=== PATIENT | female | born 1975 | race Caucasian/White ===

== ENCOUNTER 2017-12-28 05:21 | Day surgery (SDC) | payer MEDICARE, MEDICAID, SELFPAY ==
[2017-12-28] VITALS (13 sets, daily range): BP systolic 92–131; BP diastolic 44–81; PULSE 76–115; RESP 14–18; TEMP 36.3–37.5; O2SAT 93–99; BMI 27.5
--- NOTE | 2017-12-28 05:29 | EKG12_ITS ---
Test Reason : PRE-OP Blood Pressure : / mmHG Vent. Rate : 107 BPM Atrial Rate : 107 BPM P-R Int : 174 ms QRS Dur : 082 ms QT Int : 344 ms P-R-T Axes : 076 065 069 degrees QTc Int : 459 ms Sinus tachycardia Otherwise normal ECG Confirmed by NEFTALY BLUNT, ALEKSANDER ([id number]), editor school photograph CLINT ROSA ([id number]) on 01/02/2018 8:51:45 AM Referred By: Valarie Wiley Confirmed By:ALEKSANDER HIGGINBOTHAM MD
[2017-12-28 05:46] LABS: Internal QC Validated? YES +Cl - CLEAR BKGD; Pregnancy, Urine Negative Negative
[2017-12-28] MEDS: Phenazopyridine 95 MG Tablet 190 MG PO (05:52)
[2017-12-28 06:12] LABS: Hematocrit 45.7 % (37-47); Hemoglobin 15.6 g/dl (12.0-15.0); Mean Corp Hgb Conc 34.1 g/gl (32-36); Mean Corpuscular Hgb 31.4 pg (27.0-32.0); Mean Platelet Vol. 9.2 fl (6.2-12.0); Platelet Count 269 K/mm3 (150-450); RBC Distribution Width CV 12.7 % (11.6-14.6); RBC Distribution Width SD 41.7 fl (35.1-43.9); Red Blood Count 4.97 M/mm3 (4.2-5.4); White Blood Count 6.8 K/mm3 (4.4-11.0)
[2017-12-28 06:17] LABS: Scan Indicated on CBC? Y/N NO
[2017-12-28 06:18] LABS: International Normalized Ratio 1.1; Prothrombin Time (Protime)PT. 13.8 SECONDS (11.7-14.9)
[2017-12-28 06:24] LABS: Partial Thromboplast Time 28.1 Seconds (24.1-36.2)
[2017-12-28 06:30] LABS: AST(SGOT) 26 U/L (15-37); Alanine Aminotransfer ALT/SGPT 50 U/L (13-56); Albumin, Serum 3.9 g/dL (3.2-5.0); Alkaline Phosphatase 79 U/L (45-117); Anion Gap 7 (5-15); BUN 13 mg/dL (7-18); Bilirubin, Direct 0.11 mg/dL (0.00-0.30); Calcium,Total 8.9 mg/dL (8.5-10.1); Chloride 109 mmol/L (98-107); Creatinine, Serum 0.76 mg/dL (0.55-1.02); EST Glomerular Filtration Rate 87 mL/min (>60); Est Glom Filt Rate - Afr Amer 105 mL/min (>60); Estimated Creatinine Clearance 81.57 ml/min; Globulin 3.6 g/dL (2.2-4.2); Glucose 106 mg/dL (70-110); Potassium 4.3 mmol/L (3.5-5.1); Protein, Total 7.5 g/dL (6.4-8.2); Sodium Level 143 mmol/L (136-145)
[2017-12-28] MEDS: Vasopressin 20 UNITS/ML Vial (07:02)
--- NOTE | 2017-12-28 07:15 | HYST_PTH ---
PATIENT: SAMRA PELAEZ LOC: [facility] [place] U#:[id number] AGE/SX: 42/F ROOM: RE12/28/[address]: Dr. Valarie Wiley, MDDOB: 1975 BED: DIS: 12/29/2017 SPEC #: [id number] RECD: 12/28/17 08:52 STATUS: JANET MAHONEYFlorencio #: [id number] [place]: 12/28/17 07:[address]: Valarie Wiley DEPT: SURGICAL PATHOLOGY RECD BY: Nino Fierro ENTERED: 12/28/17 09:30 SP TYPE: HYSTERECT OTHR DR: Dr. Nestor Toscano MD Tissues: Uterus, NOS Procedures: Surgery Specimen Level V HEADER OPERATION: Laparoscopic assisted vaginal hysterectomy, bilateral salpingectomy PRE-OP DIAGNOSIS: Postmenopausal bleeding TISSUE SUBMITTED: Uterus, cervix, bilateral fallopian tubes MICROSCOPIC DIAGNOSIS Uterus, hysterectomy: Cervix ? mild chronic inflammation. Endometrium ? proliferative endometrium. Myometrium ? focal superficial adenomyosis. Right and left fallopian tubes ? no pathologic change. AM:cayden 12/29/17 MICROSCOPIC DESCRIPTION Slides are reviewed. GROSS DESCRIPTION Received in fixative is one container labeled with the patient's name and designated uterus, cervix and bilateral fallopian tubes. The specimen consists of a hysterectomy specimen consisting of uterus with cervix and attached bilateral fallopian tubes. The uterus with cervix weighs 61 gm and measures 8 x 5 x 3.5 cm. The serosal surface is davila, glistening. The ectocervical mucosa is unremarkable. The ectocervix is oval in contour. The endocervical canal measures 2.5 cm in length and the endocervical mucosa is unremarkable. The triangular endometrial cavity measures 3.5 cm in length and 2.5 cm in width. The endometrium is davila, congested and measures <0.1 cm in thickness. The cornu on the left side, a portion of metallic coiled wire device is also noted. Sections of the uterine wall do not reveal any mass lesion and it measures 2 cm in thickness. The right fallopian tube measures 6 cm in length and 0.5 cm in diameter. The fimbrial end is identified. A Filshie clip is noted in the middle which appears intact. The left fallopian tube measures 5 cm in length and 0.5 cm in diameter. A Filshie clip is also noted in the middle which appears intact. A metallic coiled device is also noted in the portion of the fallopian tube. No metallic coiled device is noted in the right side. Also present in the container is a detached piece of soft tissue measuring 1.5 x 1 x 0.5 cm. Orange Picker sections are submitted in nine cassettes as follows: 1 - anterior cervix, 2 - posterior cervix, 3 & 4 - anterior uterine wall, 5 & 6 - posterior uterine wall, 7 ? right fallopian tube, 8 ? left fallopian tube, 9 ? detached piece of tissue. / BENITA:cayden 12/28/17 TC:5 CPT: 37576
[2017-12-28] MEDS: Bupivacaine Mpf 0.5% 30 ML VIAL (07:45)
--- NOTE | 2017-12-28 08:30 | PCM.OP.BLANK ---
Operative Report Date of Procedure: 12/28/17 Date of Procedure: 12/28/17 Pre-Operative Diagnosis: AUB, pelvic pain Post-Operative Diagnosis: same Surgery/Procedure Performed:: LAVH, bilateral salpingectomy, cysto Description of Surgical Findings:: No evidence of endometriosis. Normal ovaries, normal uterus. bilateral filshie clips present Surgeon: Dr. Valarie Barger nutritionist: Dr. Deanna Mcdonough nutritionist: Jose Manuel Aguilera - MS3 Type of Anesthesia:: General Anesthesiologist: Micheal Villar Special Medications: dilute vasopressin for vaginal aspect 20 in 200cc. 0.5 % marcaine for abd. incisions Specimen's removed: uterus, cervix, bilateral tubes Drains: limon Estimated Blood Loss (mL): 30 Fluids Replaced: 1600cc Description of Procedure: Patient take to OR and prepped and draped in usual sterile fashion in dorsal lithotomy position with her arms tucked in a neurologically safe and neutral position. The uterus sounded to 6 cm. The [employer] uterine manipulator and limon were placed. Attention was turned to the abdomen. All port sites were infiltrated with 0.5% Marcaine before the incisions were made. The anterior abdominal wall was tented up with towel clamps and using a direct entry approach a 5 mm intraumbilical port was placed with direct visualization. Intraperitoneal placement was confirmed with the laparoscope and the pneumoperitoneum was created. The patient was placed in Trendelenburg and 5 mm right and left lower quadrant ports were placed under direct visualization. The bowel was swept away. Ovaries appeared normal. The tubes were grasped, clamped, sealed and transected along the antimesenteric portions with the LigaSure. The round ligaments were divided. The anterior peritoneum was dissected down to create the bladder flap with blunt dissection and the ligasure. The uterine arteries were isolated, clamped, sealed and cut. There was minimal back bleeding from the uterus. Attention was turned to the vaginal portion of the case. The anterior vagina was infiltrated w/ dilute vasopressin An incision was made over the anterior vagina and the anterior colpotomy incision was made with blunt and sharp dissection. The lower vagina was clamped, transected and suture ligated. A second pedicle containing the peritoneum was secured with Sanjay clamps, cut and suture ligated. The uterus was brought through the anterior colpotomy incision and the uterosacral ligaments were clamped, cut and suture ligated. The pedicles were examined and were suture ligated. The specimen was handed off. the uterosacral ligaments were tied in the midline The cuff was closed with interrupted 0-vicryl figure of 8 sutures. Cystoscopy was performed, both ureters noted to be peristalsing. Bladder mucosa intact. The pneumoperitoneum was recreated and the cuff and pedicles were hemostatic. The ureters were both seen and peristalsing. The skin incisions were closed with skin glue and 3-0 monocryl. The vaginal sweep was completed by me. I performed the remainder of the procedure w/ assistance. Grafts/Implants Used: none - Complications none
--- NOTE | 2017-12-28 08:37 | OP.PCM_ITS ---
Operative Report Date of Procedure: 12/28/17 Date of Procedure: 12/28/17 Pre-Operative Diagnosis: AUB, pelvic pain Post-Operative Diagnosis: same Surgery/Procedure Performed:: LAVH, bilateral salpingectomy, cysto Description of Surgical Findings:: No evidence of endometriosis. Normal ovaries, normal uterus. bilateral filshie clips present Surgeon: Dr. Valarie Barger safety and health manager: Dr. Deanna Mcdonough safety and health manager: Jose Manuel Aguilera - MS3 Type of Anesthesia:: General Anesthesiologist: Micheal Villar Special Medications: dilute vasopressin for vaginal aspect 20 in 200cc. 0.5 % marcaine for abd. incisions Specimen's removed: uterus, cervix, bilateral tubes Drains: limon Estimated Blood Loss (mL): 30 Fluids Replaced: 1600cc Description of Procedure: Patient take to OR and prepped and draped in usual sterile fashion in dorsal lithotomy position with her arms tucked in a neurologically safe and neutral position. The uterus sounded to 6 cm. The [employer] uterine manipulator and limon were placed. Attention was turned to the abdomen. All port sites were infiltrated with 0.5% Marcaine before the incisions were made. The anterior abdominal wall was tented up with towel clamps and using a direct entry approach a 5 mm intraumbilical port was placed with direct visualization. Intraperitoneal placement was confirmed with the laparoscope and the pneumoperitoneum was created. The patient was placed in Trendelenburg and 5 mm right and left lower quadrant ports were placed under direct visualization. The bowel was swept away. Ovaries appeared normal. The tubes were grasped, clamped, sealed and transected along the antimesenteric portions with the LigaSure. The round ligaments were divided. The anterior peritoneum was dissected down to create the bladder flap with blunt dissection and the ligasure. The uterine arteries were isolated, clamped, sealed and cut. There was minimal back bleeding from the uterus. Attention was turned to the vaginal portion of the case. The anterior vagina was infiltrated w/ dilute vasopressin An incision was made over the anterior vagina and the anterior colpotomy incision was made with blunt and sharp dissection. The lower vagina was clamped, transected and suture ligated. A second pedicle containing the peritoneum was secured with Sanjay clamps, cut and suture ligated. The uterus was brought through the anterior colpotomy incision and the uterosacral ligaments were clamped, cut and suture ligated. The pedicles were examined and were suture ligated. The specimen was handed off. the uterosacral ligaments were tied in the midline The cuff was closed with interrupted 0-vicryl figure of 8 sutures. Cystoscopy was performed, both ureters noted to be peristalsing. Bladder mucosa intact. The pneumoperitoneum was recreated and the cuff and pedicles were hemostatic. The ureters were both seen and peristalsing. The skin incisions were closed with skin glue and 3-0 monocryl. The vaginal sweep was completed by me. I performed the remainder of the procedure w/ assistance. Grafts/Implants Used: none - Complications none
--- NOTE | 2017-12-28 10:39 | PCM.DC.AHY ---
Discharge Diet: No Restrictions Discharge Activity: Return to Normal Activity, May Not Drive - while taking narcotic pain medications., May Shower Return to work on:: 02/08/18 May shower in (days): 1 May resume sexual activity in: 6-8 weeks Lifting Restrictions: 20 Call your doctor if your incision/area has: Continuous Slow Oozing, Sudden Increased Bleeding, Increased Pain/ Swelling, Increased Redness, Foul Smelling Discharge Call your doctor if you observe: Fever of 101 or Higher, Inability to urinate, Inability to have a bowel movement, Using more than one pad per hour Cleanse incision/area with: Soap & Water - you have skin glue over incision sites. do not pick it off. You may let soap and water run over incision sites. Allergies/Adverse Reactions: Allergies egg Allergy (Verified 12/21/17 13:15) Anaphylaxis shellfish derived Allergy (Verified 12/21/17 13:15) Unknown, FROM TESTING ONLY Sulfa (Sulfonamide Antibiotics) Allergy (Verified 12/21/17 13:15) Hives codeine Adverse Reaction (Verified 12/21/17 13:15) Nausea Medications to take at Discharge Montelukast [Singulair] 10 mg PO QHS 06/08/16 Omeprazole [Prilosec] 20 mg PO BID 06/08/16 Ondansetron [Zofran Odt] 4 mg PO Q8H PRN PRN #10 tablet 06/08/16 Pramipexole Di-HCl [Mirapex] 0.5 mg PO DAILY 06/08/16 Albuterol Inhaler [Ventolin Hfa (SP)] 2 puff INHALATION Q6H PRN PRN 06/08/17 Ipratropium/Albuterol Sulfate [Duoneb] 3 ml INHALATION Q4H PRN PRN 06/08/17 Venlafaxine HCl [Effexor] 75 mg PO DAILY 06/08/17 Ergocalciferol [Vitamin D] 50,000 unit PO MOFR 12/21/17 Fluticasone 110 Mcg [Flovent 110 Mcg] 2 puff INHALATION BID 12/21/17 Lamotrigine 100 mg PO DAILY 12/21/17 Albuterol Aerosols [Ventolin Aerosols] 2.5 mg INHALATION Q4H PRN vial.neb. 12/28/17 Buspirone HCl 15 mg PO TID tablet 12/28/17 Ibuprofen [Motrin] 800 mg PO Q8H PRN PRN #30 tab 12/28/17 Ipratropium/Albuterol Sulfate [Duoneb] 3 ml INHALATION Q4H PRN PRN ampul.neb 12/28/17 Oxycodone HCl/Acetaminophen [Percocet 5/325] 1 tablet PO Q6H PRN PRN 7 Days #28 tablet 12/28/17 SimETHICONE [Mylicon] 80 mg PO PCHS #30 tab 12/28/17 The following prescriptions were given: Oxycodone HCl/Acetaminophen [Percocet 5/325] 1 tablet PO Q6H PRN PRN 7 Days #28 tablet PRN Reason: Pain Ibuprofen [Motrin] 800 mg PO Q8H PRN PRN #30 tab PRN Reason: Pain SimETHICONE [Mylicon] 80 mg PO PCHS #30 tab Primary Care Physician: Nestor Toscano MD [Primary Care Provider] - Please Follow Up With: Valarie Wiley MD When: as scheduled for 2 week post op visit
[2017-12-28] MEDS: Ipratropium/Albuterol Sulfate 3 ML AMPUL.NEB INHALATION (11:17)
[2017-12-28] MEDS: 0.9% NaCl Peripheral Flush Adult/Peds IV ×2 (12:49→17:47)
[2017-12-28] MEDS: Ketorolac 30 MG/ML Syringe IV ×3 (12:49→21:21)
[2017-12-28] MEDS: Acetaminophen 500 MG Tablet 1000 MG PO ×2 (12:53→21:20)
[2017-12-28] MEDS: oxyCODONE 5 MG Tablet PO ×2 (15:31→21:27)
[2017-12-28] MEDS: Lactated Ringers 1,000 ML 125 ML IV (17:49)
[2017-12-28] MEDS: Montelukast 10 MG Tablet PO (21:20)
[2017-12-29 02:45] VITALS: BP 92/48; PULSE 73; RESP 18; TEMP 36.9; O2SAT 97
[2017-12-29] MEDS: 0.9% NaCl Peripheral Flush Adult/Peds IV ×2 (04:19→09:16)
[2017-12-29] MEDS: Ketorolac 30 MG/ML Syringe IV ×2 (04:19→09:16)
[2017-12-29] MEDS: oxyCODONE 5 MG Tablet PO ×2 (04:38→09:16)
[2017-12-29] MEDS: Enoxaparin 40 MG/0.4 ML Syringe SC (05:07)
[2017-12-29] MEDS: Acetaminophen 500 MG Tablet 1000 MG PO (05:08)
[2017-12-29 06:35] LABS: Hematocrit 36.2 % (37-47); Hemoglobin 12.3 g/dl (12.0-15.0); Mean Corpuscular Hgb 32.1 pg (27.0-32.0); Mean Corpuscular Volume 94.5 fL (81-99); Mean Platelet Vol. 9.8 fl (6.2-12.0); Platelet Count 222 K/mm3 (150-450); RBC Distribution Width CV 12.5 % (11.6-14.6); RBC Distribution Width SD 42.2 fl (35.1-43.9); Red Blood Count 3.83 M/mm3 (4.2-5.4); White Blood Count 12.2 K/mm3 (4.4-11.0)
[2017-12-29 06:38] LABS: Scan Indicated on CBC? Y/N NO
[2017-12-29 07:15] VITALS: O2SAT 96
--- NOTE | 2017-12-29 08:04 | PCM.PN.OB ---
Subjective: pt seen at bedside, doing well. pt reports good pain control. passing flatus. denies N/V. pt reports some aching in lower abdomen but overall feeling well. pt is urinating w/o difficultly. - Physical Exam General: Alert, Oriented x3 Abdomen: Soft, Non-Distended, Passing Flatus, - - incision sites dry and intact Extremities: No Calf Tenderness Vital Signs Temp Pulse Resp BP Pulse Ox 98.5 F 73 18 92/48 L 96 12/29/17 02:45 12/29/17 02:45 12/29/17 02:45 12/29/17 02:45 12/29/17 07:15 Oxygen Flow Rate 2 Oxygen Delivery Method Room Air Weight: 72.8 kg Body Mass Index (BMI) 27.5 Intake and Output for Last 24 Hours 12/27/17 12/28/17 12/29/17 23:59 23:59 23:59 Intake Total 3489 / 3489 2626 / 2626 Output Total 375 / 375 1125 / 1125 Balance 3114 / 3114 1501 / 1501 Laboratory Tests Past 24 Hrs 12/29/17 05:50 WBC 12.2 H RBC 3.83 L Hgb 12.3 Hct 36.2 L MCV 94.5 MCH 32.1 H MCHC 34.0 RDW 12.5 RDW Differential 42.2 Plt Count 222 MPV 9.8 Assessment/Plan POD#1 s/p LAVH, BIlateral salpingectomy, cysto 1) pain mgmt 2) ambulation 3) labs reviewed- stable 4) VS and I&O reviewed- pt doing well 5) DC Home today.
[2017-12-29 09:11] VITALS: BP 101/61; PULSE 91; RESP 16; TEMP 36.7; O2SAT 95
[2017-12-29] MEDS: Venlafaxine HCl 75 MG Tablet PO (09:16)
[2017-12-29] MEDS: Pantoprazole Sodium 20 MG Tablet PO (09:16)
[2017-12-29] MEDS: lamoTRIgine 100 MG Tablet PO (09:16)
== END 2017-12-29 08:05 | disposition home or self-care (01) ==
LOC: SDC 05:22 → ACINP 05:25 → AC 07:40 → MS3 09:39
PROVIDERS: Anesthesiology; Family Provider Family Medicine; PCP Family Medicine; Visit Provider Obstetrics & Gynecology
PROC: 0UT9FZZ Resection of Uterus, Via Natural or Artificial Opening With Percutaneous Endoscopic Assistance (ICD-10-PCS; CPT 52000; principal; 2017-12-28 06:50)
DX: N80.0 Endometriosis of uterus (principal); N72 Inflammatory disease of cervix uteri; R10.2 Pelvic and perineal pain; N94.6 Dysmenorrhea, unspecified; N93.9 Abnormal uterine and vaginal bleeding, unspecified; J44.9 Chronic obstructive pulmonary disease, unspecified; K21.9 Gastro-esophageal reflux disease without esophagitis; F32.9 Major depressive disorder, single episode, unspecified; F41.9 Anxiety disorder, unspecified; M79.7 Fibromyalgia; F17.200 Nicotine dependence, unspecified, uncomplicated; Z86.718 Personal history of other venous thrombosis and embolism; Z98.51 Tubal ligation status
CPT/HCPCS: 52000; 58552; 36415; 80048; 80076; 81025; 85027; 85610; 85730; 88307; 93005; 94640; J7040; J7120; A4216; J2405

== ENCOUNTER 2019-01-08 17:38 | Emergency (ER) | payer MEDICARE, MEDICAID, SELFPAY ==
[2017-12-28 10:29] VITALS: BMI 27.5
[2019-01-08 17:38] VITALS: BP 137/81; PULSE 109; RESP 20; TEMP 36.7; O2SAT 99; BMI 27.0
--- NOTE | 2019-01-08 18:12 | CT_ITS ---
STUDY: CT ABDOMEN AND PELVIS WITHOUT CONTRAST REASON FOR EXAM: Female, 43 years old. Worsening UTI symptoms despite antibiotics x 4 days. Weakness, urinary retention. Recent Merrill catheter. RADIATION DOSAGE (If Supplied By Facility): CTDIvol = ( 12.83 ) mGy, DLP = ( 578.18 ) mGycm TECHNIQUE: Transaxial images were obtained from the dome of the diaphragm to the symphysis pubis without oral contrast, and without intravenous contrast. Sagittal and coronal images were reconstructed. Individualized dose optimization techniques were used for this CT. COMPARISON: None. FINDINGS: The visualized lung bases are unremarkable. The visualized portions of the heart are within normal limits. Normal liver. The portal vein diameter is 13 mm. Normal gallbladder and extrahepatic biliary system. Normal spleen. Normal pancreas. Normal bilateral adrenal glands. Normal right kidney. Normal left kidney. No hydronephrosis. Normal visualized stomach. Normal small intestine. Normal colon. The appendix is visualized and appears normal. There is mild atherosclerotic calcification of the abdominal aorta, without a demonstrated aneurysm. Normal inferior vena cava. Normal retroperitoneum. There are number of nonspecific lymph nodes in the inguinal soft tissues. The urinary bladder is distended to approximately 620 mL at the time of scanning. There is minimal gas in the bladder lumen, which may be related to recent instrumentation. There is absence of the uterus consistent with a prior hysterectomy. Normal abdominal wall. Normal osseous structures. CT/Abdomen/Pelvis without Cont IMPRESSION: 1. Urinary bladder is distended to approximately 620 mm at the time of scanning. Minimal gas in the bladder lumen may reflect recent instrumentation. 2. No hydronephrosis. The kidneys are unremarkable. 3. Prior hysterectomy. Electronically Signed: Eugenio Mei MD at 18:41 EST , Service support ,
[2019-01-08 18:14] LABS: Mucous, Urine 0 SEEN /hpf (<or=2+)
[2019-01-08] MEDS: Morphine 4 MG/ML Syringe IV (18:17)
[2019-01-08] MEDS: Ondansetron 4 MG/2 ML Vial IV (18:17)
[2019-01-08 18:18] LABS: Color, Urine Yellow (Yellow); Glucose, Dipstick Normal (Normal); Ketone-Dipstick 5 mg/dl (Negative); Leukocyte Esterase-Dipstick 500 /ul (Negative); Nitrite-Dipstick Positive (Negative); Occult Blood-Urine 150 /ul (Negative); Protein-Dipstick 30 mg/dl (Negative); Urine Clarity Cloudy (Clear); Urine Urobilinogen 8 mg/dl (Normal)
[2019-01-08] MEDS: 0.9% Normal Saline 1,000 ML 150 ML IV (18:19)
[2019-01-08 18:20] LABS: Urine Bilirubin Dipstick 3 mg/dL (Negative)
[2019-01-08 18:23] LABS: Absolute Lymphocyte Count 3.26 X10^3/ul (0.83-4.51); Absolute Neutrophil Count 2.8 X10^3/uL (2.0-7.7); Basophil# 0.05 X10^3/uL; Basophil% 0.7 % (0-1); Eosinophil# 0.37 X10^3/uL; Eosinophils% 5.3 % (0-5); Hematocrit 45.6 % (37-47); Hemoglobin 15.1 g/dl (12.0-15.0); Lymphocyte # 3.26 X10^3/ul (4.0); Lymphocyte % 46.8 % (19-41); Mean Corp Hgb Conc 33.1 g/gl (32-36); Mean Corpuscular Hgb 31.4 pg (27.0-32.0); Mean Corpuscular Volume 94.8 fL (81-99); Mean Platelet Vol. 10.1 fl (6.2-12.0); Monocyte# 0.53 X10^3/uL; Monocyte% 7.6 % (0-10); Neutrophil # 2.75 X10^3/uL (2.7-7.7); Neutrophil % 39.5 % (47-70); Platelet Count 244 K/mm3 (150-450); RBC Distribution Width CV 12.7 % (11.6-14.6); RBC Distribution Width SD 44.1 fl (35.1-43.9); Red Blood Count 4.81 M/mm3 (4.2-5.4)
[2019-01-08 18:26] LABS: POSITIVE COUNT NO; POSITIVE DIFFERENTIAL NO; POSITIVE MORPHOLOGY NO; Squamous Epithelial Cells - UA 5-10 SEEN /hpf (5-10); White Blood Cells 25-50 SEEN /hpf (0-5)
[2019-01-08 18:27] LABS: Bacteria RARE /hpf (None Seen); Red Blood Cells-Urine 0-5 SEEN /hpf (0-5)
[2019-01-08 18:51] LABS: Anion Gap 5 (5-15); BUN 10 mg/dL (7-18); BUN/Creat Ratio 10.8 RATIO (10-20); Calcium,Total 8.9 mg/dL (8.5-10.1); Chloride 107 mmol/L (98-107); Creatinine, Serum 0.92 mg/dL (0.55-1.02); EST Glomerular Filtration Rate 70 mL/min (>60); Est Glom Filt Rate - Afr Amer 84 mL/min (>60); Estimated Creatinine Clearance 66.68 ml/min; Glucose 81 mg/dL (74-106); Potassium 4.5 mmol/L (3.5-5.1); Sodium Level 139 mmol/L (136-145)
[2019-01-08] MEDS: Ceftriaxone 1 GM/50 ML BAG IV (20:04)
[2019-01-08 20:06] VITALS: BP 93/61; PULSE 98; RESP 18; TEMP 36.8; O2SAT 96
[2019-01-08 20:08] VITALS: BP 101/70
[2019-01-08] MEDS: fentaNYL 100 MCG/2 ML Ampul 25 MCG IV (20:22)
--- NOTE | 2019-01-08 21:52 | ED.VISSUMM ---
- ER Visit Summary Date of Service: 01/08/19 Chief Complaint: UTI History of Present Illness: The patient is a 43 F who was seen at her [employer]'s office 4 days ago. She was diagnosed with a UTI and herpes. Patient reports difficulty urinating for the past 2 days. She was seen at [facility] yesterday. Patient states is only been able to urinate once today at home. She does report having a fever up to 102 at home. She is complaining of increased pain in the lower abdomen. She also has a burning pain across her back and down into her thighs. Physical Examination: Vital signs significant for heart rate of 109, otherwise unremarkable. She is afebrile. Patient is lying in bed no acute distress, but she does appear uncomfortable. Head neck examination unremarkable. Heart is regular rate and rhythm. Lungs sounds are clear. Abdomen is soft with suprapubic tenderness. Hypoactive bowel sounds noted throughout. Back examination reveals no CVA tenderness. Test Results: CT flank shows bladder to be distended. No evidence of hydronephrosis. Normal kidneys. CBC was normal white count. Hemoglobin is concentrated at 15.1. Chemistry studies are normal. Urinalysis is positive for nitrites with 25-50 white cells and rare bacteria. Emergency Department Course and Treatment: Patient was given morphine, Zofran, and IV fluids. Merrill catheter was placed by nursing staff. They do note that she has swelling and lesions noted to the labia. After Merrill was placed 700 cc of urine immediately drained. Urine was sent for culture. She is given a dose of IV Rocephin. For continued pain she did receive 1 dose of fentanyl. At this time patient is requesting discharge to home and is declining hospital admission. Merrill catheter will remain in place. She will continue her acyclovir along with Keflex for UTI. She is given a fentanyl patch here which she can remove in 3 days. Patient is to follow-up with [employer] office in 3-5 days at which point hopefully her swelling will be improved and Merrill catheter can be removed. Patient voices understanding and agreement. Treatment Plan: [] Disposition: Discharge Impression: 1. Urinary retention 2. UTI 3. Herpes This note was generated with Lokof[employer]ation software. It may contain incorrect words, spelling, and punctuation that were not noted in review of the chart prior to signing ED Disposition - Plan for ED Patient: Disposition: Home or Assisted Living Instructions: ED Retention Urinary Female, ED UTI Cystitis Female Referrals: Valarie Wiley MD [STAFF PHYSICIAN] - 3-5 Days Nestor Toscano MD [Primary Care Provider] -
--- NOTE | 2019-01-08 21:52 | ED.DEP ---
ED Disposition - Plan for ED Patient: Disposition: Home or Assisted Living Instructions: ED Retention Urinary Female, ED UTI Cystitis Female Referrals: Nestor Toscano MD [Primary Care Provider] - Valarie Wiley MD [STAFF PHYSICIAN] - 3-5 Days
[2019-01-08 22:39] VITALS: BP 91/54; PULSE 71; RESP 16; O2SAT 98
== END 2019-01-08 22:40 | disposition home or self-care (01) ==
PROVIDERS: Emergency Provider Emergency Medicine; Family Provider Family Medicine; PCP Family Medicine
DX: N39.0 Urinary tract infection, site not specified (principal); A60.04 Herpesviral vulvovaginitis; R33.9 Retention of urine, unspecified; K21.9 Gastro-esophageal reflux disease without esophagitis; F32.9 Major depressive disorder, single episode, unspecified; F41.9 Anxiety disorder, unspecified; F12.90 Cannabis use, unspecified, uncomplicated; Z79.899 Other long term (current) drug therapy; Z86.73 Personal history of transient ischemic attack (TIA), and cerebral infarction without residual deficits; Z72.0 Tobacco use
CPT/HCPCS: 51702; 74176; 80048; 81001; 85025; 87086; 96365; 96366; 96375; 99284; J7030; J7040; J2405

== ENCOUNTER 2019-01-11 17:56 | Emergency (ER) | payer MEDICARE, MEDICAID, SELFPAY ==
[2019-01-11 17:57] VITALS: BP 125/93; PULSE 100; RESP 18; TEMP 37.1; O2SAT 99; BMI 24.9
--- NOTE | 2019-01-11 18:07 | ED.VISSUMM ---
- ER Visit Summary Date of Service: 01/11/19 Chief Complaint: Abdominal pain, dysuria, myalgias History of Present Illness: The patient is a 43 F presents to the emergency department with multiple complaints. The patient was actually seen here 3 days ago. At that time, she had acute urinary retention thought to be secondary to genital herpes. She had a Merrill catheter placed. She was given a fentanyl patch and Keflex. She is been taking her Valtrex. She states that even since then, her pain is worsened. She had diffuse myalgias and arthralgias. She had muscle spasms and back pain. She still had persistent fevers and chills. She denies any other significant medical history. She denies any other recent change in medications. Physical Examination: Vital signs reviewed General: Well-nourished, well-developed Head: Normocephalic, atraumatic Eyes: Pupils equal and reactive, extraocular muscles intact Neck, supple, no lymphadenopathy Heart: Regular rate and rhythm Respiratory: No distress, clear bilaterally Abdomen: Soft, nontender, nondistended, no peritoneal signs Back: Nontender Extremities: Nontender, no edema, no cords Skin: Normal color no rash Neuro: Alert and oriented, no focal or lateralizing deficits Test Results: [] Emergency Department Course and Treatment: The patient presents mostly with myalgias. She is having pain in her legs and spasms in her back. I did do a supervised genital exam with nurse in the room. Her vaginal lesions have totally resolved. I did review her culture which was negative. My suspicion is that this is likely medication side effect because it was worsened after she started the Keflex. Patient's Merrill catheter was removed. She was given fluids and analgesics. I obtained screening labs including magnesium, lactic, and CPK. These are all unremarkable. The patient has no evidence of infectious process and now she is resting comfortably. At this time, I do feel that she is safe for outpatient therapy. She wants to attempt this and I feel this is reasonable. I do not suspect a dangerous process. Her lab markers are unremarkable. Her physical exam is reassuring. She will be discharged home. Treatment Plan: [] Disposition: Discharge Impression: 1. Myalgias This note was generated with [employer] dictation software. It may contain incorrect words, spelling, and punctuation that were not noted in review of the chart prior to signing ED Disposition - Plan for ED Patient: Instructions: ED Muscle Aching Referrals: Nestor Toscano MD [Primary Care Provider] -
[2019-01-11 18:13] VITALS: BP 125/93; PULSE 100; RESP 18; TEMP 37.1; O2SAT 99
[2019-01-11] MEDS: Morphine 4 MG/ML Syringe IV (18:39)
[2019-01-11] MEDS: Ondansetron 4 MG/2 ML Vial IV (18:39)
[2019-01-11] MEDS: 0.9% Normal Saline 1,000 ML 1000 ML IV (18:40)
[2019-01-11 18:50] LABS: Absolute Lymphocyte Count 2.16 X10^3/ul (0.83-4.51); Absolute Neutrophil Count 4.7 X10^3/uL (2.0-7.7); Basophil# 0.07 X10^3/uL; Basophil% 0.9 % (0-1); Eosinophil# 0.28 X10^3/uL; Eosinophils% 3.7 % (0-5); Hematocrit 44.6 % (37-47); Hemoglobin 15.5 g/dl (12.0-15.0); Lymphocyte # 2.16 X10^3/ul (4.0); Lymphocyte % 28.6 % (19-41); Mean Corp Hgb Conc 34.8 g/gl (32-36); Mean Corpuscular Hgb 32.3 pg (27.0-32.0); Mean Corpuscular Volume 92.9 fL (81-99); Monocyte# 0.31 X10^3/uL; Monocyte% 4.1 % (0-10); Neutrophil # 4.71 X10^3/uL (2.7-7.7); Neutrophil % 62.4 % (47-70); Platelet Count 275 K/mm3 (150-450); RBC Distribution Width CV 12.3 % (11.6-14.6); RBC Distribution Width SD 41.3 fl (35.1-43.9); White Blood Count 7.6 K/mm3 (4.4-11.0)
[2019-01-11 18:51] LABS: POSITIVE COUNT NO; POSITIVE DIFFERENTIAL NO; POSITIVE MORPHOLOGY NO
--- NOTE | 2019-01-11 18:59 | ED.RN ---
PT COATS D/C, DRAINED 10 ML FLUID OUT OF BALLOON. PT TOLERATED WELL. AWAITING TO OBTAIN URINE SAMPLE.
[2019-01-11 19:03] LABS: Lactic Acid 0.9 mmol/L (0.4-2.0)
[2019-01-11 19:15] LABS: ALB/GLOB Ratio 0.9 RATIO (0.9-2.4); AST(SGOT) 42 U/L (15-37); Alanine Aminotransfer ALT/SGPT 29 U/L (13-56); Albumin, Serum 3.7 g/dL (3.2-5.0); Alkaline Phosphatase 82 U/L (45-117); Anion Gap 6 (5-15); BUN 7 mg/dL (7-18); BUN/Creat Ratio 8.5 RATIO (10-20); Calcium,Total 8.6 mg/dL (8.5-10.1); Chloride 110 mmol/L (98-107); Creatinine, Serum 0.82 mg/dL (0.55-1.02); EST Glomerular Filtration Rate 79 mL/min (>60); Est Glom Filt Rate - Afr Amer 96 mL/min (>60); Estimated Creatinine Clearance 74.81 ml/min; Globulin 3.9 g/dL (2.2-4.2); Glucose 111 mg/dL (74-106); Magnesium 2.2 mg/dL (1.6-2.6); Potassium 4.5 mmol/L (3.5-5.1); Protein, Total 7.6 g/dL (6.4-8.2); Sodium Level 140 mmol/L (136-145)
[2019-01-11 19:55] VITALS: BP 135/54; PULSE 92; RESP 14; TEMP 37.2; O2SAT 96
[2019-01-11] MEDS: HYDROmorphone 0.5 MG/0.5 ML SYRINGE IV (20:37)
[2019-01-11 20:39] VITALS: BP 104/84; PULSE 86; RESP 15; TEMP 37.2; O2SAT 97
[2019-01-11 21:32] LABS: CPK Total, Creatine Kinase 128 U/L (26-192)
[2019-01-11 22:41] VITALS: BP 105/67; PULSE 83; RESP 12; O2SAT 98
== END 2019-01-11 22:42 | disposition home or self-care (01) ==
LOC: ED 18:22
PROVIDERS: Emergency Provider Emergency Medicine; Family Provider Family Medicine; PCP Family Medicine
DX: M79.10 Myalgia, unspecified site (principal); R06.00 Dyspnea, unspecified; J45.909 Unspecified asthma, uncomplicated; Z72.0 Tobacco use; R11.0 Nausea; M54.9 Dorsalgia, unspecified; R50.9 Fever, unspecified
CPT/HCPCS: 80053; 82550; 83605; 83735; 85025; 96361; 96374; 96375; 99284; J7030; A4216; J2405

== ENCOUNTER 2021-08-16 17:04 | Emergency (ER) | payer MEDICARE, MEDICAID, SELFPAY ==
[2021-08-16 17:05] VITALS: BP 125/83; PULSE 110; RESP 18; TEMP 36.6; O2SAT 99; BMI 24.9
[2021-08-16 17:20] LABS: Mucous, Urine 0 SEEN /hpf (<or=2+); Squamous Epithelial Cells - UA 0 SEEN /hpf (5-10)
[2021-08-16 17:24] LABS: Color, Urine Yellow (Yellow); Glucose, Dipstick Normal (Normal); Ketone-Dipstick Negative (Negative); Leukocyte Esterase-Dipstick 500 /ul (Negative); Nitrite-Dipstick Positive (Negative); Occult Blood-Urine 25 /ul (Negative); Protein-Dipstick 30 mg/dl (Negative); Urine Bilirubin Dipstick Negative (Negative); Urine Clarity Cloudy (Clear); Urine Urobilinogen Normal (Normal)
[2021-08-16 17:32] LABS: Bacteria 2+ /hpf (None Seen); Red Blood Cells-Urine 0-5 SEEN /hpf (0-5); White Blood Cells 50-100 SEEN /hpf (0-5)
--- NOTE | 2021-08-16 19:38 | CT_ITS ---
INDICATION: right flank pain EXAMINATION: CT Abdomen And Pelvis W/O Contrast Injection TECHNIQUE: Helically acquired images were obtained of the abdomen and pelvis without the use of IV contrast. A radiation dose optimization technique was used for this scan. Oral contrast: None. COMPARISON: None FINDINGS: Evaluation of the solid organs and vascular structures is limited without intravenous contrast. Visualized lung bases: Unremarkable Liver: Unremarkable Gallbladder: Unremarkable Spleen: Unremarkable Pancreas: Unremarkable Adrenal Glands: Unremarkable Kidneys: Unremarkable Vasculature: Unremarkable GI Tract: Unremarkable Lymphadenopathy: None Peritoneum: No ascites. Bladder: Unremarkable Reproductive organs: Status post hysterectomy. Bones/Soft tissues: No suspicious osseous or soft tissue lesions CT/Abdomen/Pelvis without Cont IMPRESSION: No acute abnormalities in the abdomen or pelvis. Specifically, no evidence of renal or ureteral stones. Electronically Signed: Jesus Bolanos MD at 20:54 EDT Tel , Service support ,
--- NOTE | 2021-08-16 19:43 | EDS_ITS ---
HPI HPI - Female History of Present Illness Chief Complaint: Complaint Narrative Narrative: Patient presenting with dysuria, urinary frequency, hematuria. She is complaining of suprapubic pressure and right flank pain. Patient admits to a fever of 101.5 last night and again this morning. She has nausea and vomiting. She denies GI complaints. She denies vaginal complaints. Patient recently seen by her primary care outpatient and has been on ciprofloxacin, Keflex, Macrobid and has not had any improvement. She was told previously to come to the ER. Patient has a urologist but has not seen patient has not been seen by her urologist. Patient states she has no history of kidney stones. [facility] Medical History Asthma Cervical cancer COPD (chronic obstructive pulmonary disease) PTSD (post-traumatic stress disorder) Seizure TBI (traumatic brain injury) Home Medications montelukast 10 mg PO QHS 06/08/16 [History Last Taken Unknown] omeprazole 20 mg PO BID 06/08/16 [History Last Taken 12/28/17 05:00] ondansetron 4 mg PO Q8H PRN PRN #10 tab 06/08/16 [Rx Last Taken 06/15/17 06:15] pramipexole [Mirapex] 0.5 mg PO DAILY 06/08/16 [History Last Taken Unknown] albuterol sulfate [Ventolin Hfa (SP)] 2 puff INHALATION Q6H PRN PRN 06/08/17 [History Last Taken 12/28/17 05:00] ipratropium-albuterol 3 ml INHALATION Q4H PRN PRN 06/08/17 [History Last Taken 12/28/17 05:00] venlafaxine 75 mg PO DAILY 06/08/17 [History Last Taken 12/28/17 05:00] ergocalciferol (vitamin D2) [Vitamin D2] 50,000 unit PO MOFR 12/21/17 [History Last Taken Unknown] lamotrigine 100 mg PO DAILY 12/21/17 [History Last Taken 12/28/17 05:00] albuterol sulfate 2.5 mg INHALATION Q4H PRN vial.neb. 12/28/17 [Rx Last Taken Unknown] buspirone 15 mg PO TID tablet 12/28/17 [Rx Last Taken Unknown] cefpodoxime 200 mg PO BID #14 tab 08/16/21 [Rx Last Taken Unknown] hydrocodone-acetaminophen 1 tab PO Q6H PRN PRN 3 Days #12 tablet 08/16/21 [Rx Last Taken Unknown] ondansetron 4 mg PO Q8H PRN PRN #14 tab 08/16/21 [Rx Last Taken Unknown] vortioxetine [Trintellix] 10 mg PO DAILY 08/16/21 [History Last Taken Unknown] Allergy/AdvReac Type Severity Reaction Status Date / Time egg Allergy Anaphylaxis Verified 08/16/21 18:09 shellfish derived Allergy Unknown, Verified 08/16/21 18:09 FROM TESTING ONLY Sulfa (Sulfonamide Allergy Hives Verified 08/16/21 18:09 Antibiotics) codeine AdvReac Nausea Verified 08/16/21 18:09 Social History Smoking Status: Current every day smoker tobacco type: cigarettes ROS ROS ED Constitutional Constitutional ED: Denies chills or fever(s) Eyes Eyes: Denies blurry vision or change in vision ENT ENT ED: Denies rhinorrhea or sore throat Cardiovascular Cardiovascular: Denies chest pain or palpitations Respiratory/Chest Respiratory/Chest: Denies cough or dyspnea Gastrointestinal Gastrointestinal: Reports abdominal pain, nausea and vomiting; Denies constipation or diarrhea Genitourinary Genitourinary ED: Reports dysuria, hematuria and urinary frequency Musculoskeletal Musculoskeletal: Reports myalgias; Denies arthralgias or neck pain Integumentary Denies Abrasions or rash Neurologic Neurologic: Reports headache(s); Denies paresthesias or weakness EXAM Physical Exam Const Vital Signs: 08/16/21 17:05 08/16/21 20:00 Temperature 97.9 F Temperature Source Temporal Pulse Rate 110 H Respiratory Rate 18 16 Blood Pressure 125/83 H Blood Pressure Mean 97 Pulse Ox 99 Oxygen Delivery Method Room Air Positive well nourished General Appearance ED: NAD; Negative for pallor HEENT Reports moist mucous membranes Negative for trauma Eyes PERRL and EOMs intact bilaterally Resp normal respiratory effort and clear to auscultation bilaterally Cardio regular rhythm Rate: tachycardic GI GI Narrative: Suprapubic tenderness to palpation. Abdomen is nonperitoneal. Back/Spine General Back: CVA tenderness right Neuro oriented x3 Sensorium / Orientation: alert Psych mental status grossly normal Skin no rashes or lesions noted General Skin Exam: Negative for jaundice or pallor MDM MDM MDM Narrative Medical decision making narrative: Medical history. I do see that she had a recent CT scan which showed inflammation of the urinary bladder without any pyelonephritis indicated. She was treated for UTI at this time. She states she has been on Macrobid and Cipro. I checked a urine culture which was pansensitive. She does admit to a history of recurrent UTIs. She has been seeing her urologist who is doing injections of Botox into her bladder. She is unsure why this is or if this is causing her infection. She is requesting a new urologist. Her blood work today shows no leukocytosis and no left shift. Her renal function electrolytes are normal. LFTs are normal. Urinalysis consistent with infection. Since patient had a fever I did test her for COVID-19 and this is negative. CT of the abdomen pelvis was repeated due to the CVA tenderness and there is no acute process identified on her CT of the abdomen pelvis. Patient was given morphine, Zofran, IV fluids and she feels improved. I will start her on cefpodoxime he twice daily for 14 days to treat her for pyelonephritis. He was given [place] and Zofran for pain and nausea respectively. Her prescriptions were filled in the hospital and she received her first dose of antibiotics here in the ED. Patient is given follow-up with Dr. Yañez. Patient discharged home in stable condition. Impression: 1. Acute pyelonephritis Lab Data Attestation: I reviewed the patient's lab results. Labs: Laboratory Results - last 24 hr 08/16/21 08/16/21 08/16/21 17:15 20:12 20:12 WBC 8.4 RBC 4.74 Hgb 15.0 Hct 44.0 MCV 92.8 MCH 31.6 MCHC 34.1 RDW Std Deviation 42.7 RDW Coeff of Della 12.3 Plt Count 268 MPV 9.3 Immature Gran % (Auto) 0.200 Neut % (Auto) 56.9 Lymph % (Auto) 33.0 [place] % (Auto) 6.2 Eos % (Auto) 3.2 Baso % (Auto) 0.5 Absolute Neuts (auto) 4.8 Absolute Lymphs (auto) 2.76 Nucleated RBC % 0 Sodium 138 Potassium 3.7 Chloride 108 H Carbon Dioxide 24.0 Anion Gap 6 BUN 11 Creatinine 0.67 Estim Creat Clear Calc 88.67 Est GFR (MDRD) Af Amer 120 Est GFR (MDRD) Non-Af 100 BUN/Creatinine Ratio 16.4 Glucose 87 Calcium 8.7 Total Bilirubin 0.60 AST 12 L ALT 27 Alkaline Phosphatase 77 Total Protein 7.1 Albumin 3.7 Globulin 3.4 Albumin/Globulin Ratio 1.1 Urine Color Yellow Urine Clarity Cloudy Urine pH 6.0 Ur Specific [place] 1.020 Urine Protein 30 H Urine Glucose (UA) Normal Urine Ketones Negative Urine Occult Blood 25 H Urine Nitrite Positive H Urine Bilirubin Negative Urine Urobilinogen Normal Ur Leukocyte Esterase 500 H Urine RBC 0-5 SEEN Urine WBC 50-100 SEEN Ur Squamous Epith Cells 0 SEEN Urine Bacteria 2+ Urine Mucus 0 SEEN Radiography Diagnostic Testing: Radiology Impression Abdomen/Pelvis CT 08/16/21 19:38 IMPRESSION: No acute abnormalities in the abdomen or pelvis. Specifically, no evidence of renal or ureteral stones. Electronically Signed: Jesus Bolanos MD at 20:54 EDT Tel , Service support , Discharge Plan Triage Chief Complaint: Complaint ED Provider: Ambrocio Cohen Dx/Rx/DC Orders Instructions: ED Pyelonephritis, Female (Adult) Prescriptions: New cefpodoxime 200 mg tablet 200 mg PO BID Qty: 14 RF: 0 hydrocodone-acetaminophen 5-325 mg tablet 1 tab PO Q6H PRN PRN (Reason: Pain) 3 Days Qty: 12 RF: 0 ondansetron 4 mg tablet,disintegrating 4 mg PO Q8H PRN PRN (Reason: Nausea) Qty: 14 RF: 0 No Action pramipexole [Mirapex] 0.25 MG tablet 0.5 mg PO DAILY RF: 0 omeprazole 20 MG capsule 20 mg PO BID RF: 0 montelukast 10 MG tablet 10 mg PO QHS RF: 0 ondansetron 4 MG tablet 4 mg PO Q8H PRN PRN (Reason: Nausea) Qty: 10 RF: 0 venlafaxine 75 MG tablet 75 mg PO DAILY RF: 0 ipratropium-albuterol 3 ML solution for nebulization 3 ml inhalation Q4H PRN PRN (Reason: DIFFICULTY BREATHING) RF: 0 albuterol sulfate [Ventolin HFA] 1 INHALER inhaler 2 puff inhalation Q6H PRN PRN (Reason: Asthma) RF: 0 ergocalciferol (vitamin D2) [Vitamin D2] 50,000 UNIT capsule 50,000 unit PO MOFR RF: 0 lamotrigine 100 MG tablet 100 mg PO DAILY RF: 0 albuterol sulfate 2.5 MG/3 ML solution for nebulization 2.5 mg inhalation Q4H PRN (Reason: SOB/WHEEZING) RF: 0 buspirone 15 MG tablet 15 mg PO TID RF: 0 Trintellix 10 mg tablet 10 mg PO DAILY RF: 0 Primary Care Provider: Care Physician,No Primary Referrals: Devendra Yañez MD [STAFF PHYSICIAN] - As soon as possible Care Physician,No Primary [Primary Care Provider] - Disposition Disposition: Home, Self Care
[2021-08-16 20:00] VITALS: RESP 16
[2021-08-16] MEDS: Ondansetron 4 MG/2 ML Vial IV (20:08)
[2021-08-16] MEDS: 0.9% Normal Saline 1,000 ML 1000 ML IV (20:08)
[2021-08-16] MEDS: Morphine 4 MG/ML Syringe IV ×2 (20:08→22:33)
[2021-08-16 20:21] LABS: Absolute Lymphocyte Count 2.76 X10^3/uL (0.83-4.51); Absolute Neutrophil Count 4.8 X10^3/uL (2.0-7.7); Basophil# 0.04 X10^3/uL; Basophil% 0.5 % (0-1); Eosinophil# 0.27 X10^3/uL; Eosinophils% 3.2 % (0-5); Lymphocyte # 2.76 X10^3/ul (0.83-4.51); Mean Corp Hgb Conc 34.1 g/dL (32-36); Mean Corpuscular Hgb 31.6 pg (27.0-32.0); Mean Corpuscular Volume 92.8 fL (81-99); Mean Platelet Vol. 9.3 fl (6.2-12.0); Monocyte# 0.52 X10^3/uL; Monocyte% 6.2 % (0-10); NRBC Flagged by Analyzer 0 % (0-5); Neutrophil # 4.75 X10^3/uL (2.7-7.7); Neutrophil % 56.9 % (47-70); Platelet Count 268 K/mm3 (150-450); RBC Distribution Width CV 12.3 % (11.6-14.6); RBC Distribution Width SD 42.7 fl (35.1-43.9); Red Blood Count 4.74 M/mm3 (4.2-5.4); White Blood Count 8.4 K/mm3 (4.4-11.0)
[2021-08-16 20:41] LABS: ALB/GLOB Ratio 1.1 RATIO (0.9-2.4); AST(SGOT) 12 U/L (15-37); Alanine Aminotransfer ALT/SGPT 27 U/L (13-56); Albumin, Serum 3.7 g/dL (3.2-5.0); Alkaline Phosphatase 77 U/L (45-117); Anion Gap 6 (5-15); BUN 11 mg/dL (7-18); BUN/Creat Ratio 16.4 RATIO (10-20); Calcium,Total 8.7 mg/dL (8.5-10.1); Chloride 108 mmol/L (98-107); Creatinine, Serum 0.67 mg/dL (0.55-1.02); EST Glomerular Filtration Rate 100 mL/min (>60); Est Glom Filt Rate - Afr Amer 120 mL/min (>60); Estimated Creatinine Clearance 88.67 ml/min; Globulin 3.4 g/dL (2.2-4.2); Glucose 87 mg/dL (74-106); Potassium 3.7 mmol/L (3.5-5.1); Protein, Total 7.1 g/dL (6.4-8.2); Sodium Level 138 mmol/L (136-145)
[2021-08-16 23:00] VITALS: BP 138/74; PULSE 91; RESP 15; O2SAT 99
== END 2021-08-16 23:01 | disposition home or self-care (01) ==
PROVIDERS: Emergency Provider Student in an Organized Health Care Education/Training Program
DX: N10 Acute pyelonephritis (principal); Z87.440 Personal history of urinary (tract) infections; F17.210 Nicotine dependence, cigarettes, uncomplicated; F43.10 Post-traumatic stress disorder, unspecified; J44.9 Chronic obstructive pulmonary disease, unspecified
CPT/HCPCS: 74176; 80053; 81001; 85025; 87086; 87088; 87186; 87426; 96361; 96374; 96375; 96376; 99282; J7030; A4216; J2405

== ENCOUNTER 2021-08-21 20:17 | Observation (INO) | payer MEDICARE, MEDICAID, SELFPAY ==
[2021-08-21 20:18] VITALS: BP 111/63; PULSE 116; RESP 16; TEMP 38.2; O2SAT 98; BMI 24.9
--- NOTE | 2021-08-21 20:56 | EKG12_ITS ---
Test Reason : DYSRYTHMIA Blood Pressure : / mmHG Vent. Rate : 111 BPM Atrial Rate : 111 BPM P-R Int : 174 ms QRS Dur : 088 ms QT Int : 336 ms P-R-T Axes : 059 040 052 degrees QTc Int : 456 ms Sinus tachycardia Otherwise normal ECG Confirmed by IMTIAZ BLUNT, MIKE ([id number]), photo editor CRISTY MCLAUGHLIN ([id number]) on 08/23/2021 1:30:00 PM Referred By: DIXIE Confirmed By:MIKE KITCHEN MD
--- NOTE | 2021-08-21 21:08 | RAD_ITS ---
STUDY: X-RAY CHEST REASON FOR EXAM: Female, 46 years old. cough TECHNIQUE: AP COMPARISON: None. FINDINGS: The lungs are clear and expanded. There is no demonstrated pleural abnormality. Normal size heart. Normal mediastinum and elmer. Normal visualized pulmonary arteries. Normal visualized aortic arch and descending thoracic aorta. Normal visualized thoracic spine. Normal visualized ribs, clavicles, and shoulders. There is no demonstrated abnormality of the visualized soft tissue structures of the upper abdomen. RAD/Chest 1 View (Portable) IMPRESSION: No airspace consolidation or pleural effusion. Electronically Signed: Landen Madera MD ([place]) at 22:29 EDT , Service support ,
--- NOTE | 2021-08-21 21:11 | CT_ITS ---
STUDY: CTA CHEST REASON FOR EXAM: Female, 46 years old. chest pain RADIATION DOSAGE (If Supplied By Facility): CTDIvol = ( 9.62 ) mGy, DLP = ( 300.53 ) mGycm TECHNIQUE: The examination was performed with the intravenous administration of IV 75mL Isovue-370. Post-processing of the angiographic images was performed, with multiplanar reformation and 3D reconstruction. Individualized dose optimization techniques were used for this CT. COMPARISON: None. FINDINGS: Normal enhancement of the main pulmonary artery and right and left pulmonary arteries. Normal enhancement of the bilateral peripheral pulmonary arteries. There is no demonstrated pulmonary embolism. Normal thoracic aorta and visualized great vessels. There is no demonstrated aortic dissection. Normal heart and pericardium. Normal mediastinum. Normal hilar regions. Normal visualized trachea and bronchi. The lungs are under expanded. There are bandlike parenchymal changes most consistent with atelectasis of the bilateral lungs. Normal pleura. Normal chest wall structures. Normal osseous structures. 1 cm cyst of the spleen. ACR White Paper guidelines (Heller, et al. JACR 2013; 10(11):833-9) suggest no follow-up is necessary. CT/CTA Chest W/WO Contrast IMPRESSION: 1. No central or segmental pulmonary embolism. 2. Bibasilar atelectasis. Electronically Signed: Landen Madera MD ([place]) at 23:23 EDT , Service support ,
[2021-08-21] MEDS: Albuterol 2.5 MG/3 ML VIAL.NEB. INHALATION (21:28)
[2021-08-21] MEDS: Ipratropium/Albuterol Sulfate 3 ML AMPUL.NEB INHALATION (21:28)
[2021-08-21 21:31] VITALS: PULSE 110; RESP 20
[2021-08-21] MEDS: Morphine 4 MG/ML Syringe IV (21:48)
[2021-08-21] MEDS: MethylPREDNISolone 125 MG/2 ML Vial IV (21:48)
[2021-08-21] MEDS: Ondansetron 4 MG/2 ML Vial IV (21:48)
[2021-08-21] MEDS: Ibuprofen 600 MG Tablet PO (21:56)
[2021-08-21 22:06] LABS: Bacteria 0 SEEN /hpf (None Seen); Mucous, Urine 0 SEEN /hpf (<or=2+); Red Blood Cells-Urine 0 SEEN /hpf (0-5); Squamous Epithelial Cells - UA 0 SEEN /hpf (5-10); White Blood Cells 0 SEEN /hpf (0-5)
[2021-08-21 22:11] LABS: Absolute Lymphocyte Count 2.25 X10^3/uL (0.83-4.51); Basophil# 0.09 X10^3/uL; Basophil% 1.1 % (0-1); Eosinophil# 0.17 X10^3/uL; Hematocrit 42.3 % (37-47); Hemoglobin 14.4 g/dL (12.0-15.0); Lymphocyte # 2.25 X10^3/ul (0.83-4.51); Lymphocyte % 26.5 % (19-41); Mean Corpuscular Hgb 31.9 pg (27.0-32.0); Mean Corpuscular Volume 93.6 fL (81-99); Mean Platelet Vol. 9.7 fl (6.2-12.0); Monocyte# 0.97 X10^3/uL; Monocyte% 11.4 % (0-10); NRBC Flagged by Analyzer 0 % (0-5); Neutrophil # 4.99 X10^3/uL (2.7-7.7); Neutrophil % 58.8 % (47-70); Platelet Count 241 K/mm3 (150-450); RBC Distribution Width CV 12.7 % (11.6-14.6); RBC Distribution Width SD 43.6 fl (35.1-43.9); Red Blood Count 4.52 M/mm3 (4.2-5.4); White Blood Count 8.5 K/mm3 (4.4-11.0)
[2021-08-21 22:12] LABS: Color, Urine Yellow (Yellow); Glucose, Dipstick Normal (Normal); Ketone-Dipstick Negative (Negative); Leukocyte Esterase-Dipstick Negative /ul (Negative); Nitrite-Dipstick Negative (Negative); Occult Blood-Urine Negative /ul (Negative); Protein-Dipstick Negative (Negative); Specific Gravity, Urine 1.015 (1.002-1.030); Urine Bilirubin Dipstick Negative (Negative); Urine Clarity Clear (Clear); Urine Urobilinogen Normal (Normal); Urine pH 6.5 (5.0 - 8.0)
[2021-08-21 22:29] LABS: International Normalized Ratio 1.2; Prothrombin Time (Protime)PT. 14.3 SECONDS (11.7-14.9)
[2021-08-21 22:30] LABS: AST(SGOT) 27 U/L (15-37); Alanine Aminotransfer ALT/SGPT 36 U/L (13-56); Albumin, Serum 3.7 g/dL (3.2-5.0); Alkaline Phosphatase 78 U/L (45-117); Anion Gap 5 (5-15); BUN 9 mg/dL (7-18); BUN/Creat Ratio 11.2 RATIO (10-20); Calcium,Total 8.8 mg/dL (8.5-10.1); Chloride 109 mmol/L (98-107); EST Glomerular Filtration Rate 81 mL/min (>60); Est Glom Filt Rate - Afr Amer 98 mL/min (>60); Estimated Creatinine Clearance 74.26 ml/min; Globulin 3.7 g/dL (2.2-4.2); Glucose 96 mg/dL (74-106); Partial Thromboplast Time 28.8 Seconds (24.1-36.2); Potassium 3.8 mmol/L (3.5-5.1); Protein, Total 7.4 g/dL (6.4-8.2); Sodium Level 140 mmol/L (136-145); Troponin-I HS 6 pg/mL (3.0-54.0)
[2021-08-21 22:37] LABS: Lactic Acid 0.9 mmol/L (0.4-1.9)
[2021-08-21 22:56] VITALS: TEMP 37
--- NOTE | 2021-08-21 22:57 | EX.ED.DYSGE1 ---
HPI History of Present Illness Chief Complaint: General Illness Narrative Narrative: Patient presenting with fever, chills, cough. States this is been going on for about 24 hours. She has a history of COPD and asthma. Patient has no known exposures for COVID-19 and has not been vaccinated. Patient was recently seen for UTI pyelonephritis and states she has improved. She not have any urinary symptoms. She denies abdominal or flank pain. She does state that her chest hurts and feels tight. 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 She is not anticoagulated. She states that one of the DVTs was provoked by surgery. She is unsure what the other DVT was caused by. Patient denies PE history. Patient denies cardiac history. [facility] Medical History Asthma Cervical cancer COPD (chronic obstructive pulmonary disease) PTSD (post-traumatic stress disorder) Seizure TBI (traumatic brain injury) Home Medications montelukast 10 mg PO QHS 06/08/16 [History Last Taken Unknown] omeprazole 20 mg PO BID 06/08/16 [History Last Taken 12/28/17 05:00] ondansetron 4 mg PO Q8H PRN PRN #10 tab 06/08/16 [Rx Last Taken 06/15/17 06:15] pramipexole [Mirapex] 0.5 mg PO DAILY 06/08/16 [History Last Taken Unknown] albuterol sulfate [Ventolin Hfa (SP)] 2 puff INHALATION Q6H PRN PRN 06/08/17 [History Last Taken 12/28/17 05:00] ipratropium-albuterol 3 ml INHALATION Q4H PRN PRN 06/08/17 [History Last Taken 12/28/17 05:00] ergocalciferol (vitamin D2) [Vitamin D2] 50,000 unit PO MOFR 12/21/17 [History Last Taken Unknown] lamotrigine 100 mg PO DAILY 12/21/17 [History Last Taken 12/28/17 05:00] albuterol sulfate 2.5 mg INHALATION Q4H PRN vial.neb. 12/28/17 [Rx Last Taken Unknown] buspirone 15 mg PO TID tablet 12/28/17 [Rx Last Taken Unknown] cefpodoxime 200 mg PO BID #14 tab 08/16/21 [Rx Last Taken Unknown] hydrocodone-acetaminophen 1 tab PO Q6H PRN PRN 3 Days #12 tablet 08/16/21 [Rx Last Taken Unknown] vortioxetine [Trintellix] 10 mg PO DAILY 08/16/21 [History Last Taken Unknown] brexpiprazole [Rexulti] 0.5 mg PO DAILY 08/21/21 [History Last Taken Unknown] Allergy/AdvReac Type Severity Reaction Status Date / Time egg Allergy Anaphylaxis Verified 08/21/21 20:20 shellfish derived Allergy Unknown, Verified 08/21/21 20:20 FROM TESTING ONLY Sulfa (Sulfonamide Allergy Hives Verified 08/21/21 20:20 Antibiotics) codeine AdvReac Nausea Verified 08/21/21 20:20 Social History Smoking Status: Current every day smoker tobacco type: cigarettes ROS ROS ED Constitutional Constitutional ED: Reports chills and fever(s) Eyes Eyes: Denies blurry vision or diplopia ENT ENT ED: Reports rhinorrhea and sore throat Cardiovascular Cardiovascular: Reports chest pain and palpitations Respiratory/Chest Respiratory/Chest: Reports cough, dyspnea and sputum Gastrointestinal Gastrointestinal: Reports nausea and vomiting; Denies abdominal pain Genitourinary Genitourinary ED: Denies dysuria or hematuria Musculoskeletal Musculoskeletal: Reports myalgias; Denies arthralgias, back pain or neck pain Integumentary Denies Abrasions or rash Neurologic Neurologic: Denies headache(s) or paresthesias EXAM Physical Exam Const Vital Signs: 08/21/21 20:18 08/21/21 21:31 08/21/21 22:14 Temperature 100.7 F H Temperature Source Temporal Pulse Rate 116 H 110 H Respiratory Rate 16 20 H Respiratory Pattern Normal Blood Pressure 111/63 Blood Pressure Mean 79 Pulse Ox 98 Oxygen Delivery Method Room Air Room Air 08/21/21 22:56 08/21/21 23:00 Temperature 98.6 F Temperature Source Oral Pulse Rate 100 Respiratory Rate 18 Respiratory Pattern Blood Pressure 95/62 Blood Pressure Mean 73 Pulse Ox 93 Oxygen Delivery Method Room Air Positive well nourished General Appearance ED: NAD; Negative for pallor HEENT Reports moist mucous membranes trauma Eyes PERRL and EOMs intact bilaterally Chest Wall inspection of chest normal Resp normal respiratory effort Auscultation: wheezes expiratory wheezes Extremity normal to inspection General Extremety ED: Negative for tenderness Neuro oriented x3 and CN's II-XII intact bilaterally Sensorium / Orientation: alert Psych mental status grossly normal Skin no rashes or lesions noted General Skin Exam: Negative for jaundice or pallor MDM MDM MDM Narrative Medical decision making narrative: Patient presented with fever, chills, cough. She is found to be tachycardic and febrile. Patient has recent diagnosis of urinary tract infection so I did order sepsis work-up. Lab work today shows no leukocytosis. Patient is not lymphopenic. PT/INR normal. Urinalysis negative. Lactic acid 0.9. Renal function and electrolytes are normal. LFTs are normal. Troponin is 6. EKG on my interpretation shows normal sinus rhythm with a ventricular rate of 111 bpm without sign of ischemic change. Chest x-ray my interpretation shows no acute cardiopulmonary process and the radiologist does agree. Patient's rapid Covid is negative. Patient was treated with Solu-Medrol 125 mg and breathing treatments given her wheezing. She is not requiring oxygen. She was given ibuprofen for fever. She was also given morphine and Zofran for pain in her chest. Will obtain a CTA of the chest given her history of DVT. CT of the chest is negative for PE or infiltrate. There is no obvious dissection. Patient reevaluated at 0030 and is noted to be 89/60 blood pressure, tachycardic at 110, pulse ox at 91%. We will give the patient 500 cc bolus and check Covid PCR. Patient was discussed with the hospitalist given her lower blood pressures and slight hypoxia. She will be admitted for observation and PCR will be checked overnight. Impression: 1. Viral syndrome 2. Hypotension 3. COPD exacerbation Lab Data Attestation: I reviewed the patient's lab results. Labs: Laboratory Results - last 24 hr 08/21/21 08/21/21 08/21/21 21:35 21:45 21:45 WBC 8.5 RBC 4.52 Hgb 14.4 Hct 42.3 MCV 93.6 MCH 31.9 MCHC 34.0 RDW Std Deviation 43.6 RDW Coeff of [place]ella 12.7 Plt Count 241 MPV 9.7 Immature Gran % (Auto) 0.200 Neut % (Auto) 58.8 Lymph % (Auto) 26.5 [place] % (Auto) 11.4 H Eos % (Auto) 2.0 Baso % (Auto) 1.1 H Absolute Neuts (auto) 5.0 Absolute Lymphs (auto) 2.25 Nucleated RBC % 0 PT 14.3 INR 1.2 APTT 28.8 Sodium Potassium Chloride Carbon Dioxide Anion Gap BUN Creatinine Estim Creat Clear Calc Est GFR (MDRD) Af Amer Est GFR (MDRD) Non-Af BUN/Creatinine Ratio Glucose Lactic Acid Calcium Total Bilirubin AST ALT Alkaline Phosphatase Troponin I High Sens Total Protein Albumin Globulin Albumin/Globulin Ratio Urine Color Yellow Urine Clarity Clear Urine pH 6.5 Ur Specific [place] 1.015 Urine Protein Negative Urine Glucose (UA) Normal Urine Ketones Negative Urine Occult Blood Negative Urine Nitrite Negative Urine Bilirubin Negative Urine Urobilinogen Normal Ur Leukocyte Esterase Negative Urine RBC 0 SEEN Urine WBC 0 SEEN Ur Squamous Epith Cells 0 SEEN Urine Bacteria 0 SEEN Urine Mucus 0 SEEN 08/21/21 08/21/21 21:45 21:45 WBC RBC Hgb Hct MCV MCH MCHC RDW Std Deviation RDW Coeff of Della Plt Count MPV Immature Gran % (Auto) Neut % (Auto) Lymph % (Auto) [place] % (Auto) Eos % (Auto) Baso % (Auto) Absolute Neuts (auto) Absolute Lymphs (auto) Nucleated RBC % PT INR APTT Sodium 140 Potassium 3.8 Chloride 109 H Carbon Dioxide 26.0 Anion Gap 5 BUN 9 Creatinine 0.80 Estim Creat Clear Calc 74.26 Est GFR (MDRD) Af Amer 98 Est GFR (MDRD) Non-Af 81 BUN/Creatinine Ratio 11.2 Glucose 96 Lactic Acid 0.9 Calcium 8.8 Total Bilirubin 0.60 AST 27 ALT 36 Alkaline Phosphatase 78 Troponin I High Sens 6 Total Protein 7.4 Albumin 3.7 Globulin 3.7 Albumin/Globulin Ratio 1.0 Urine Color Urine Clarity Urine pH Ur Specific [place] Urine Protein Urine Glucose (UA) Urine Ketones Urine Occult Blood Urine Nitrite Urine Bilirubin Urine Urobilinogen Ur Leukocyte Esterase Urine RBC Urine WBC Ur Squamous Epith Cells Urine Bacteria Urine Mucus Radiography Diagnostic Testing: Radiology Impression Chest X-Ray 08/21/21 21:08 IMPRESSION: No airspace consolidation or pleural effusion. Electronically Signed: Landen Madera MD ([place]) at 22:29 EDT , Service support , Chest CTA 08/21/21 21:11 IMPRESSION: 1. No central or segmental pulmonary embolism. 2. Bibasilar atelectasis. Electronically Signed: Landen Madera MD ([place]) at 23:23 EDT , Service support , Discharge Plan Triage Chief Complaint: General Illness ED Provider: Ambrocio Cohen Dx/Rx/DC Orders Prescriptions: No Action pramipexole [Mirapex] 0.25 MG tablet 0.5 mg PO DAILY RF: 0 omeprazole 20 MG capsule 20 mg PO BID RF: 0 montelukast 10 MG tablet 10 mg PO QHS RF: 0 ondansetron 4 MG tablet 4 mg PO Q8H PRN PRN (Reason: Nausea) Qty: 10 RF: 0 ipratropium-albuterol 3 ML solution for nebulization 3 ml inhalation Q4H PRN PRN (Reason: DIFFICULTY BREATHING) RF: 0 albuterol sulfate [Ventolin HFA] 1 INHALER inhaler 2 puff inhalation Q6H PRN PRN (Reason: Asthma) RF: 0 ergocalciferol (vitamin D2) [Vitamin D2] 50,000 UNIT capsule 50,000 unit PO MOFR RF: 0 lamotrigine 100 MG tablet 100 mg PO DAILY RF: 0 albuterol sulfate 2.5 MG/3 ML solution for nebulization 2.5 mg inhalation Q4H PRN (Reason: SOB/WHEEZING) RF: 0 buspirone 15 MG tablet 15 mg PO TID RF: 0 Trintellix 10 mg tablet 10 mg PO DAILY RF: 0 cefpodoxime 200 mg tablet 200 mg PO BID Qty: 14 RF: 0 hydrocodone-acetaminophen 5-325 mg tablet 1 tab PO Q6H PRN PRN (Reason: Pain) 3 Days Qty: 12 RF: 0 Rexulti 0.5 mg tablet 0.5 mg PO DAILY RF: 0 Primary Care Provider: Ever Chandra
[2021-08-21 23:00] VITALS: BP 95/62; PULSE 100; RESP 18; O2SAT 93
--- NOTE | 2021-08-22 00:32 | PCM.HP.STD ---
HPI - General General Date of Admission: 08/22/21 Date of Service: 08/22/21 Chief Complaint: COVID symptoms. HPI Narrative The patient is a 46 y/o F w/ PMHx: Chronic COPD/Asthma, Seizure disorder, Hx TBI, Hx Cervical Cancer, PTSD/Anxiety and Depression/Bipolar disorder, Tobacco use, RLS, GERD who presents to the [facility] ED on 08/21/21 with history of significantly elevated fevers up to a T-max 103.1, chills, headache, sore throat, fatigue, malaise, cough, dyspnea, pleuritic chest discomfort, nausea without any emesis, lightheadedness and dizziness prompting ED evaluation. Patient was recently seen 08/16/2021 secondary to dysuria, urinary frequency and hematuria with suprapubic pressure and right flank pain at that time with associated fevers discharged to home on Cefpodoxime with review notable for presumptive E. coli greater than 100,000 with rico sensitivity. Patient's boyfriend is present denies any recent similar symptoms. Both her and her boyfriend are nonvaccinated. She does note that she was recently out in public including [place]. Work-up in the ED included T 100.7, heart rate 116, respiratory rate 20, 93% on room air, CBC with WBC 8.5, hemoglobin 14.4, platelet 241 without marked shift, unremarkable coags, CMP with chloride 109 otherwise unremarkable, lactic acid 0.9, high-sensitivity troponin 6, chest x-ray with no airspace consolidation or pleural effusions, follow-up CTPA with no central or segmental pulmonary embolism, bibasilar atelectasis, rapid Covid antigen negative, blood culture x2 pending per ED, urine culture pending per ED however urinalysis unremarkable. Pending Covid PCR upon admission. In the ED patient ministered albuterol, ibuprofen, DuoNeb therapy, Solu-Medrol 125 mg IV x1, morphine 4 mg IV x1, Zofran. [facility] Medical History Anxiety and depression Asthma Bipolar disorder Cervical cancer COPD (chronic obstructive pulmonary disease) PTSD (post-traumatic stress disorder) Seizure TBI (traumatic brain injury) Tobacco use Home Medications montelukast 10 mg PO QHS 06/08/16 [History Last Taken Unknown] omeprazole 20 mg PO BID 06/08/16 [History Last Taken 12/28/17 05:00] ondansetron 4 mg PO Q8H PRN PRN #10 tab 06/08/16 [Rx Last Taken 06/15/17 06:15] pramipexole [Mirapex] 0.5 mg PO DAILY 06/08/16 [History Last Taken Unknown] albuterol sulfate [Ventolin Hfa (SP)] 2 puff INHALATION Q6H PRN PRN 06/08/17 [History Last Taken 12/28/17 05:00] ipratropium-albuterol 3 ml INHALATION Q4H PRN PRN 06/08/17 [History Last Taken 12/28/17 05:00] ergocalciferol (vitamin D2) [Vitamin D2] 50,000 unit PO MOFR 12/21/17 [History Last Taken Unknown] lamotrigine 100 mg PO DAILY 12/21/17 [History Last Taken 12/28/17 05:00] albuterol sulfate 2.5 mg INHALATION Q4H PRN vial.neb. 12/28/17 [Rx Last Taken Unknown] buspirone 15 mg PO TID tablet 12/28/17 [Rx Last Taken Unknown] cefpodoxime 200 mg PO BID #14 tab 08/16/21 [Rx Last Taken Unknown] hydrocodone-acetaminophen 1 tab PO Q6H PRN PRN 3 Days #12 tablet 08/16/21 [Rx Last Taken Unknown] vortioxetine [Trintellix] 10 mg PO DAILY 08/16/21 [History Last Taken Unknown] brexpiprazole [Rexulti] 0.5 mg PO DAILY 08/21/21 [History Last Taken Unknown] Allergy/AdvReac Type Severity Reaction Status Date / Time egg Allergy Anaphylaxis Verified 08/21/21 20:20 shellfish derived Allergy Unknown, Verified 08/21/21 20:20 FROM TESTING ONLY Sulfa (Sulfonamide Allergy Hives Verified 08/21/21 20:20 Antibiotics) codeine AdvReac Nausea Verified 08/21/21 20:20 Family History (Updated 08/22/21 @ 01:[address] Akiko Everett MD) Father Hypertension Mother Hypertension Surgical History (Updated 08/22/21 @ 01:[address] Akiko Everett MD) History of umbilical hernia repair Hx of cataract surgery S/P partial hysterectomy Social History (Updated 08/22/21 @ 01:[address] Akiko Everett MD) housing: other details: She lives with her 20 year old autistic son. Smoking Status: Current every day smoker tobacco type: cigarettes Smoking packs per day: 1 Smoking cigarettes per day: 20.0 Years smoked: 27 Smoking pack-years: 27.00 how long ago did patient quit smoking: Started smoking age [age], 1 ppd since starting. alcohol intake: current alcohol intake frequency: a few times a month substance use type: does not use ROS ROS Narrative Admission Review of Systems: CONSTITUTIONAL: No weight loss, + fever, chills, weakness or fatigue. HEENT: + Headache, sore throat, congestion. Eyes: No visual loss, blurred vision, double vision or yellow sclerae. Ears, Nose, Throat: No hearing loss, sneezing. SKIN: No rash or itching, lesions, wounds. CARDIOVASCULAR: + Pleuritic chest pain, tightness. No palpitations, edema, orthopnea, syncopal events. RESPIRATORY: + shortness of breath, cough without sputum, mild wheezing, No hemoptysis. GASTROINTESTINAL: + anorexia, nausea, No vomiting or diarrhea, abdominal pain, melena, BRBPR. GENITOURINARY: No dysuria, frequency, urgency or retention. NEUROLOGICAL: +headache, dizziness, No syncope, paralysis, ataxia, numbness or tingling in the extremities, focal weakness, change in bowel or bladder control, seizure. MUSCULOSKELETAL: No muscle, back pain, joint pain or stiffness. HEMATOLOGIC: No anemia, bleeding or bruising. LYMPHATICS: No enlarged nodes. No history of splenectomy. PSYCHIATRIC: + history of depression or anxiety. ENDOCRINOLOGIC: No reports of sweating, cold or heat intolerance. No polyuria or polydipsia. ALLERGIES: + history of asthma, hives, eczema or rhinitis. Vital Signs Vital Signs Vital Signs: 08/21/21 20:18 08/21/21 21:31 08/21/21 22:14 Temperature 100.7 F H Temperature Source Temporal Pulse Rate 116 H 110 H Respiratory Rate 16 20 H Respiratory Pattern Normal Blood Pressure 111/63 Blood Pressure Mean 79 Pulse Ox 98 Oxygen Delivery Method Room Air Room Air 08/21/21 22:56 08/21/21 23:00 Temperature 98.6 F Temperature Source Oral Pulse Rate 100 Respiratory Rate 18 Respiratory Pattern Blood Pressure 95/62 Blood Pressure Mean 73 Pulse Ox 93 Oxygen Delivery Method Room Air Weight Weight: 145 lb Body Mass Index (BMI) 24.9 Physical Exam Narrative Physical Examination: General: Awake, alert, oriented x 3 and cooperative, seated upright in the ED bed, anxious, pulse oximeter vacillating, low 90s. Skin: Normal color, normal turgor, no icterus, no cyanosis. HEENT: AT/NC, EOMI, PERRLA, dry MM, no carotid bruits or JVD noted. Lungs: Diffusely diminished, greater bases, occasional end expiratory wheeze, tachypneic, no rales or rhonchi. Heart: Mildly tachycardic with regular rhythm; no gallop, rub audible. Abdomen: Soft, overweight, NTTP, ND, distant mildly hyperactive BS, no HSM. Extremities: No cyanosis, clubbing, or edema except mild right hand swelling, nontender to palpation, moving fingers well, peripheral pulses intact. Neurological: Patient awake, alert, oriented as noted, cognitive function intact; pupils equally reactive to light and accommodation, cranial nerves II-XII grossly normal, moving all 4 extremities, no focal deficits, strength moderately global decrease secondary to acute presentation. Psychiatric: Affect appears anxious, tearful, history of depression and anxiety/PTSD/bipolar disorder. Results Lab / Micro Data Result Diagrams: 08/21/21 21:45 08/21/21 21:45 Labs: Laboratory Results - last 24 hr 08/21/21 21:35: Urine Color Yellow, Urine Clarity Clear, Urine pH 6.5, Ur Specific [place] 1.015, Urine Protein Negative, Urine Glucose (UA) Normal, Urine Ketones Negative, Urine Occult Blood Negative, Urine Nitrite Negative, Urine Bilirubin Negative, Urine Urobilinogen Normal, Ur Leukocyte Esterase Negative, Urine RBC 0 SEEN, Urine WBC 0 SEEN, Ur Squamous Epith Cells 0 SEEN, Urine Bacteria 0 SEEN, Urine Mucus 0 SEEN 08/21/21 21:45: WBC 8.5, RBC 4.52, Hgb 14.4, Hct 42.3, MCV 93.6, MCH 31.9, MCHC 34.0, RDW Std Deviation 43.6, RDW Coeff of Della 12.7, Plt Count 241, MPV 9.7, Immature Gran % (Auto) 0.200, Neut % (Auto) 58.8, Lymph % (Auto) 26.5, [place] % (Auto) 11.4 H, Eos % (Auto) 2.0, Baso % (Auto) 1.1 H, Absolute Neuts (auto) 5.0, Absolute Lymphs (auto) 2.25, Nucleated RBC % 0 08/21/21 21:45: PT 14.3, INR 1.2, APTT 28.8 08/21/21 21:45: Sodium 140, Potassium 3.8, Chloride 109 H, Carbon Dioxide 26.0, Anion Gap 5, BUN 9, Creatinine 0.80, Estim Creat Clear Calc 74.26, Est GFR (MDRD) Af Amer 98, Est GFR (MDRD) Non-Af 81, BUN/Creatinine Ratio 11.2, Glucose 96, Calcium 8.8, Total Bilirubin 0.60, AST 27, ALT 36, Alkaline Phosphatase 78, Troponin I High Sens 6, Total Protein 7.4, Albumin 3.7, Globulin 3.7, Albumin/Globulin Ratio 1.0 08/21/21 21:45: Lactic Acid 0.9 Micro: Microbiology 08/21/21 21:45 Nasal Secretion SARS-CoV-2 Antigen (Rapid) - Final Radiology Impression Chest X-Ray 08/21/21 21:08 IMPRESSION: No airspace consolidation or pleural effusion. Electronically Signed: Landen Madera MD ([place]) at 22:29 EDT , Service support , Chest CTA 08/21/21 21:11 IMPRESSION: 1. No central or segmental pulmonary embolism. 2. Bibasilar atelectasis. Electronically Signed: Landen Madera MD ([place]) at 23:23 EDT , Service support , Assessment & Plan Assessment/Plan (1) Suspected COVID-19 virus infection: (2) Hypoxia: PLAN: The patient is a 46 y/o F w/ PMHx: Chronic COPD/Asthma, Seizure disorder, Hx TBI, Hx Cervical Cancer, PTSD/Anxiety and Depression/Bipolar disorder, Tobacco use, RLS, GERD who presents to the [facility] ED on 08/21/21 with history of significantly elevated fevers up to a T-max 103.1, chills, headache, sore throat, fatigue, malaise, cough, dyspnea, pleuritic chest discomfort, nausea without any emesis, lightheadedness and dizziness prompting ED evaluation. 1. Acute Dyspnea, Cough, Fever with Hypoxia, Suspected secondary to Acute Viral Syndrome, COVID-19 with Acute on Chronic COPD/Asthma Exacerbation concurrently and associated Hypotension: We will admit to medical surgical floor on telemetry given initial hypotensive presentation, improved with IV fluids, will maintain on oxygen with wean as tolerated to room air, ATC DuoNeb therapies, PRN albuterol, HOB, IS parameters w/ pending sputum cultures, respiratory viral panel and urine antigens, will obtain D-dimer, procalcitonin, CRP, CPK, Ferritin, LDH, trop and BNP, continue supportive care including q 2 hour turning including prone given no prone bed availability and judicious hydration. Covid PCR pending upon admission however presentation suspicious for Covid. If PCR is negative may need to even consider repeat testing in 24 hours given symptom onset x24 hours only. If Covid positive we will continue with IV Decadron 6 mg IV x10 doses and initiate IV remedesivir given associated hypoxic presentation. If PCR negative would transition to Solu-Medrol regimen. 2. Recent Acute E. coli UTI, Suspected likely Pyelonephritis: Recent 08/16/2021 evaluation with diagnosis UTI at that time, culture with E. coli with rico sensitivities, discharged on appropriate medication, will judiciously continue IVFs, monitor I/Os, continue Cefpodoxime regimen. 3. PTSD/anxiety and depression/bipolar disorder: We will continue patient home brexpiprazole, vortioxetine, BuSpar, lamotrigine regimen. 4. Allergic rhinitis: We will continue patient home montelukast regimen. 5. Restless leg syndrome: We will continue patient home Mirapex regimen. 6. Seizure disorder: We will continue patient home lamotrigine regimen. 7. Tobacco Abuse: Encouraged cessation, inpatient consultation per RT, NR if desired. 8. GERD: We will continue patient home PPI. 9. DVT prophylaxis: SCDs, Lovenox. 10. CODE status: Patient does not have healthcare power of prosecuting attorney nor living will. Patient's boyfriend is present for discussions. Given concern for acute presentation with suspected Covid, discussed CODE status at length including difference between FULL code, DNR-CCA and DNR-CC status. Following discussions about the differences in these status, requested Full Code status. Amenable to usage also of airvo and BIPAP. Advanced Care Planning Face to Face Time: 16 minutes. Charges/Coding Visit Charges OBSV E&M: 21015 Initial observation care L3 Procedures Hospitalists Procedures: [id number] Advncd Care Plan 30 Min
[2021-08-22 01:17] VITALS: BP 100/71; PULSE 92; RESP 16; O2SAT 94
[2021-08-22 01:22] VITALS: BP 100/71; PULSE 101; RESP 14; TEMP 36.4; O2SAT 98
[2021-08-22 01:46] VITALS: BMI 25.3
[2021-08-22 02:26] VITALS: BP 89/53; PULSE 91; RESP 18; TEMP 36.6; O2SAT 95
[2021-08-22] MEDS: 0.9% Normal Saline 1,000 ML 100 ML IV (02:47)
[2021-08-22] MEDS: HYDROcodone Bitartrate/Apap 5/325 Tablet PO ×2 (02:49→10:09)
[2021-08-22] MEDS: dexAMETHasone 4 MG/ML Vial 6 MG IV (03:02)
[2021-08-22 03:20] VITALS: O2SAT 95
[2021-08-22] MEDS: Ceftriaxone 1 GM/50 ML BAG IV (03:59)
[2021-08-22 04:26] VITALS: BP 97/54; PULSE 89; RESP 18; TEMP 36.7; O2SAT 96
[2021-08-22 04:59] LABS: Ferritin 88 ng/mL (8-252); LDH 249 U/L (84-246)
[2021-08-22 05:10] LABS: BNP,B-Type NATRIURETIC PEPTIDE 7.5 pg/mL (0-100)
[2021-08-22 05:13] LABS: D-Dimer Quantitative (DVT/PE) 0.59 FEU/ug/m (0.27-0.49)
[2021-08-22 05:32] LABS: Procalcitonin < 0.04 ng/mL (0.00-0.09)
[2021-08-22] MEDS: busPIRone 15 MG TABLET PO (05:39)
[2021-08-22 07:32] LABS: Absolute Lymphocyte Count 0.66 X10^3/uL (0.83-4.51); Absolute Neutrophil Count 6.3 X10^3/uL (2.0-7.7); Basophil# 0.01 X10^3/uL; Basophil% 0.1 % (0-1); Hematocrit 39.7 % (37-47); Lymphocyte # 0.66 X10^3/ul (0.83-4.51); Lymphocyte % 9.4 % (19-41); Mean Corp Hgb Conc 32.7 g/dL (32-36); Mean Corpuscular Hgb 31.3 pg (27.0-32.0); Mean Corpuscular Volume 95.4 fL (81-99); Mean Platelet Vol. 9.5 fl (6.2-12.0); Monocyte# 0.03 X10^3/uL; Monocyte% 0.4 % (0-10); NRBC Flagged by Analyzer 0 % (0-5); Neutrophil # 6.31 X10^3/uL (2.7-7.7); Neutrophil % 89.8 % (47-70); Platelet Count 232 K/mm3 (150-450); RBC Distribution Width CV 12.6 % (11.6-14.6); Red Blood Count 4.16 M/mm3 (4.2-5.4)
[2021-08-22 07:35] VITALS: PULSE 93; RESP 16
[2021-08-22] MEDS: Ipratropium/Albuterol Sulfate 3 ML AMPUL.NEB INHALATION (07:35)
[2021-08-22 08:26] LABS: ALB/GLOB Ratio 0.9 RATIO (0.9-2.4); AST(SGOT) 19 U/L (15-37); Alanine Aminotransfer ALT/SGPT 28 U/L (13-56); Alkaline Phosphatase 63 U/L (45-117); Anion Gap 7 (5-15); BUN 9 mg/dL (7-18); BUN/Creat Ratio 12.4 RATIO (10-20); Calcium,Total 8.1 mg/dL (8.5-10.1); Chloride 112 mmol/L (98-107); Creatinine, Serum 0.72 mg/dL (0.55-1.02); EST Glomerular Filtration Rate 91 mL/min (>60); Est Glom Filt Rate - Afr Amer 110 mL/min (>60); Estimated Creatinine Clearance 82.51 ml/min; Globulin 3.3 g/dL (2.2-4.2); Glucose 163 mg/dL (74-106); Potassium 4.1 mmol/L (3.5-5.1); Protein, Total 6.3 g/dL (6.4-8.2); Sodium Level 141 mmol/L (136-145)
--- NOTE | 2021-08-22 08:38 | DS.PCM_ITS ---
Providers Date of Admission: 08/22/21 Primary Care Physician: Dr. Ever Chandra MD Reason For Visit: RECENT UTI, SUSPECTED COVID, HYPOXIA Diagnosis Discharge Diagnosis (1) Suspected COVID-19 virus infection: Status: Acute Code(s): Z20.822 - Contact with and (suspected) exposure to COVID-19 (2) Hypoxia: Status: Acute Code(s): R09.02 - Hypoxemia Medications at Discharge Home Medications montelukast 10 mg PO QHS 06/08/16 omeprazole 20 mg PO BID 06/08/16 ondansetron 4 mg PO Q8H PRN PRN #10 tab 06/08/16 pramipexole [Mirapex] 0.5 mg PO QHS 06/08/16 albuterol sulfate [Ventolin HFA] 2 puff INHALATION Q6H PRN PRN 06/08/17 ipratropium-albuterol 3 ml INHALATION Q4H PRN PRN 06/08/17 ergocalciferol (vitamin D2) [Vitamin D2] 50,000 unit PO MOFR 12/21/17 lamotrigine 100 mg PO DAILY 12/21/17 Trintellix 10 mg PO DAILY 08/16/21 hydrocodone-acetaminophen 1 tab PO Q6H PRN PRN 3 Days #12 tablet 08/16/21 Rexulti 0.5 mg PO DAILY 08/21/21 albuterol sulfate 2.5 mg INHALATION Q4H PRN PRN 08/22/21 azithromycin [Zithromax] 500 mg PO DAILY 3 Days #3 tab 08/22/21 buspirone 15 mg PO TID 08/22/21 cefpodoxime 200 mg PO BID 08/22/21 prednisone 40 mg PO DAILY #10 tab 08/22/21 Hospital Course Summary of Care Provided Minutes Spent on Discharge: 35 Hospital Course: Patient is a 46-year-old lady admitted with progressive shortness of breath cough and chills and fever. COVID-19 was ruled out with both a rapid antigen test as well as PCR. Patient was treated with aerosol treatment and prednisone. She did improve discharged a day after her admission. She was located on the need to get vaccinated following her discharge. She did promise to get vaccinated. She was also instructed to follow-up with her P CP on discharge within a week Physical Exam Narrative GENERAL: cooperative HEENT: Atraumatic; EYES; Anicteric, Normal Conjunctiva NECK; supple, normal thyroid, RESPIRATORY: Diminished to auscultation CARDIOVASCULAR: Regular S1 S2, GI: soft, normoactive bowel sounds, : No Renal angle tenderness; EXTREMITIES: No edema, no clubbing, MUSCULOSKELETAL: no muscle waisting NEURO: Awake; no lateralizing signs. SKIN: No Rash PSYCH; Flat affect Weight / BMI Weight Weight: 66.9 kg Body Mass Index (BMI) 25.3 ABG / Lab / Microbiology Data Result Diagrams: 08/22/21 07:05 08/22/21 07:05 Laboratory: Laboratory Results - last 24 hr 08/21/21 21:35: Urine Color Yellow, Urine Clarity Clear, Urine pH 6.5, Ur Specific [place] 1.015, Urine Protein Negative, Urine Glucose (UA) Normal, Urine Ketones Negative, Urine Occult Blood Negative, Urine Nitrite Negative, Urine Bilirubin Negative, Urine Urobilinogen Normal, Ur Leukocyte Esterase Negative, Urine RBC 0 SEEN, Urine WBC 0 SEEN, Ur Squamous Epith Cells 0 SEEN, Urine Bact eria 0 SEEN, Urine Mucus 0 SEEN 08/21/21 21:45: WBC 8.5, RBC 4.52, Hgb 14.4, Hct 42.3, MCV 93.6, MCH 31.9, MCHC 34.0, RDW Std Deviation 43.6, RDW Coeff of Della 12.7, Plt Count 241, MPV 9.7, Immature Gran % (Auto) 0.200, Neut % (Auto) 58.8, Lymph % (Auto) 26.5, [place] % (Auto) 11.4 H, Eos % (Auto) 2.0, Baso % (Auto) 1.1 H, Absolute Neuts (auto) 5.0, Absolute Lymphs (auto) 2.25, Nucleated RBC % 0 08/21/21 21:45: PT 14.3, INR 1.2, APTT 28.8 08/21/21 21:45: Sodium 140, Potassium 3.8, Chloride 109 H, Carbon Dioxide 26.0, Anion Gap 5, BUN 9, Creatinine 0.80, Estim Creat Clear Calc 74.26, Est GFR (MDRD) Af Amer 98, Est GFR (MDRD) Non-Af 81, BUN/Creatinine Ratio 11.2, Glucose 96, Calcium 8.8, Total Bilirubin 0.60, AST 27, ALT 36, Alkaline Phosphatase 78, Troponin I High Sens 6, Total Protein 7.4, Albumin 3.7, Globulin 3.7, Albumin/Globulin Ratio 1.0 08/21/21 21:45: Lactic Acid 0.9 08/21/21 21:45: D-Dimer Quant (PE/DVT) 0.59 H* 08/21/21 21:45: Ferritin 88, Lactate Dehydrogenase 249 H, C-React Prot Ext Range 32.30 H 08/21/21 21:45: B-Natriuretic Peptide 7.5 08/21/21 22:45: Procalcitonin < 0.04 08/22/21 00:35: COVID-19 ([facility]) Not Detected 08/22/21 07:05: WBC 7.0, RBC 4.16 L, Hgb 13.0, Hct 39.7, MCV 95.4, MCH 31.3, MCHC 32.7, RDW Std Deviation 44.0 H, RDW Coeff of Della 12.6, Plt Count 232, MPV 9.5, Immature Gran % (Auto) 0.300, Neut % (Auto) 89.8 H, Lymph % (Auto) 9.4 L, [place] % (Auto) 0.4, Eos % (Auto) 0.0, Baso % (Auto) 0.1, Absolute Neuts (auto) 6.3, Absolute Lymphs (auto) 0.66 L, Nucleated RBC % 0 08/22/21 07:05: Sodium 141, Potassium 4.1, Chloride 112 H, Carbon Dioxide 22.0, Anion Gap 7, BUN 9, Creatinine 0.72, Estim Creat Clear Calc 82.51, Est GFR (MDRD) Af Amer 110, Est GFR (MDRD) Non-Af 91, BUN/Creatinine Ratio 12.4, Glucose 163 H, Calcium 8.1 L, Total Bilirubin 0.40, AST 19, ALT 28, Alkaline Phosphatase 63, Total Protein 6.3 L, Albumin 3.0 L, Globulin 3.3, Albumin/Globulin Ratio 0.9 Microbiology: Microbiology 08/22/21 01:09 Mucosa - Nasopharyngeal Respiratory Panel (PCR) - Final 08/21/21 21:45 Nasal Secretion SARS-CoV-2 Antigen (Rapid) - Final Radiography Diagnostic Testing: Radiology Impression Chest X-Ray 08/21/21 21:08 IMPRESSION: No airspace consolidation or pleural effusion. Electronically Signed: Landen Madera MD ([place]) at 22:29 EDT , Service support , Chest CTA 08/21/21 21:11 IMPRESSION: 1. No central or segmental pulmonary embolism. 2. Bibasilar atelectasis. Electronically Signed: Landen Madera MD ([place]) at 23:23 EDT , Service support , D/C Instructions Discharge Diet: No restrictions Discharge Activity: Return to Normal Activity Call your doctor if you observe: Fever of 101 or Higher, Shortness of breath, Fainting spells and Chest pain Meaningful Use Info Meaningful Use Diagnoses (Choose all that apply): None applicable Discharge Plan Admission Admit Date/Time: 08/22/21 01:07 Attending Provider: Carlos Mclaughlin Primary Care Provider: Ever Chandra Instructions Patient Instructions: Discharge Instructions: COPD Discharge Orders/Prescriptions Prescriptions: New prednisone 20 mg tablet 40 mg PO DAILY Qty: 10 RF: 0 azithromycin [Zithromax] 500 mg tablet 500 mg PO DAILY 3 Days Qty: 3 RF: 0 Continued pramipexole [Mirapex] 0.25 MG tablet 0.5 mg PO QHS RF: 0 omeprazole 20 MG capsule 20 mg PO BID RF: 0 montelukast 10 MG tablet 10 mg PO QHS RF: 0 ondansetron 4 MG tablet 4 mg PO Q8H PRN PRN (Reason: Nausea) Qty: 10 RF: 0 ipratropium-albuterol 3 ML solution for nebulization 3 ml inhalation Q4H PRN PRN (Reason: DIFFICULTY BREATHING) RF: 0 albuterol sulfate [Ventolin HFA] 1 INHALER inhaler 2 puff inhalation Q6H PRN PRN (Reason: Asthma) RF: 0 ergocalciferol (vitamin D2) [Vitamin D2] 50,000 UNIT capsule 50,000 unit PO MOFR RF: 0 lamotrigine 100 MG tablet 100 mg PO DAILY RF: 0 Trintellix 10 mg tablet 10 mg PO DAILY RF: 0 hydrocodone-acetaminophen 5-325 mg tablet 1 tab PO Q6H PRN PRN (Reason: Pain) 3 Days Qty: 12 RF: 0 Rexulti 0.5 mg tablet 0.5 mg PO DAILY RF: 0 albuterol sulfate 2.5 MG/3 ML solution for nebulization 2.5 mg inhalation Q4H PRN PRN (Reason: SOB/WHEEZING) RF: 0 cefpodoxime 200 mg tablet 200 mg PO BID RF: 0 buspirone 15 MG tablet 15 mg PO TID RF: 0 Referrals / Follow Up: Ever Chandra MD [Primary Care Provider] - Within 1 Week Disposition Disposition (needs filled in before D/C Order can be placed): Home, Self Care Charges/Coding Visit Charges OBSV E&M: 41087 Observation care discharge
--- NOTE | 2021-08-22 09:32 | PCM.DC ---
Discharge Instructions Diet Discharge Diet: No restrictions Dressing / Incision Call your doctor if you observe: Fever of 101 or Higher, Shortness of breath, Fainting spells and Chest pain Follow Up Care Test Results: Test results from this visit will be discussed in further detail at your follow-up appointment, if applicable. Discharge Plan Admission Admit Date/Time: 08/22/21 01:07 Attending Provider: Carlos Mclaughlin Primary Care Provider: Ever Chandra Discharge Orders/Prescriptions Prescriptions: New prednisone 20 mg tablet 40 mg PO DAILY Qty: 10 RF: 0 azithromycin [Zithromax] 500 mg tablet 500 mg PO DAILY 3 Days Qty: 3 RF: 0 Continued pramipexole [Mirapex] 0.25 MG tablet 0.5 mg PO QHS RF: 0 omeprazole 20 MG capsule 20 mg PO BID RF: 0 montelukast 10 MG tablet 10 mg PO QHS RF: 0 ondansetron 4 MG tablet 4 mg PO Q8H PRN PRN (Reason: Nausea) Qty: 10 RF: 0 ipratropium-albuterol 3 ML solution for nebulization 3 ml inhalation Q4H PRN PRN (Reason: DIFFICULTY BREATHING) RF: 0 albuterol sulfate [Ventolin HFA] 1 INHALER inhaler 2 puff inhalation Q6H PRN PRN (Reason: Asthma) RF: 0 ergocalciferol (vitamin D2) [Vitamin D2] 50,000 UNIT capsule 50,000 unit PO MOFR RF: 0 lamotrigine 100 MG tablet 100 mg PO DAILY RF: 0 Trintellix 10 mg tablet 10 mg PO DAILY RF: 0 hydrocodone-acetaminophen 5-325 mg tablet 1 tab PO Q6H PRN PRN (Reason: Pain) 3 Days Qty: 12 RF: 0 Rexulti 0.5 mg tablet 0.5 mg PO DAILY RF: 0 albuterol sulfate 2.5 MG/3 ML solution for nebulization 2.5 mg inhalation Q4H PRN PRN (Reason: SOB/WHEEZING) RF: 0 cefpodoxime 200 mg tablet 200 mg PO BID RF: 0 buspirone 15 MG tablet 15 mg PO TID RF: 0 Referrals / Follow Up: Ever Chandra MD [Primary Care Provider] - Within 1 Week Disposition Disposition (needs filled in before D/C Order can be placed): Home, Self Care
[2021-08-22] MEDS: lamoTRIgine 100 MG Tablet PO (10:01)
[2021-08-22] MEDS: Pantoprazole Sodium 20 MG Tablet PO (10:01)
[2021-08-22] MEDS: Pramipexole Di-HCl 0.5 MG Tablet PO (10:02)
[2021-08-22] MEDS: guaiFENesin 10 ML UDC (200MG/10ML) 20 ML PO (10:09)
== END 2021-08-22 10:30 | disposition home or self-care (01) ==
LOC: ED 21:14 → MS2 08-22 07:13
PROVIDERS: Admitting Provider Family Medicine; Emergency Provider Student in an Organized Health Care Education/Training Program; PCP Family Medicine; Visit Provider Internal Medicine
DX: R09.02 Hypoxemia (principal); J44.9 Chronic obstructive pulmonary disease, unspecified; F43.10 Post-traumatic stress disorder, unspecified; F17.210 Nicotine dependence, cigarettes, uncomplicated; J44.1 Chronic obstructive pulmonary disease with (acute) exacerbation; I95.9 Hypotension, unspecified; G40.909 Epilepsy, unspecified, not intractable, without status epilepticus; F31.9 Bipolar disorder, unspecified; K21.9 Gastro-esophageal reflux disease without esophagitis; G25.81 Restless legs syndrome; Z86.718 Personal history of other venous thrombosis and embolism; Z87.820 Personal history of traumatic brain injury; Z79.899 Other long term (current) drug therapy; Z20.822 Contact with and (suspected) exposure to COVID-19; Z87.440 Personal history of urinary (tract) infections; R00.0 Tachycardia, unspecified; B34.9 Viral infection, unspecified; R50.9 Fever, unspecified; R06.00 Dyspnea, unspecified; R07.89 Other chest pain; R42 Dizziness and giddiness; R53.1 Weakness; R53.81 Other malaise; R10.9 Unspecified abdominal pain; R51.9 Headache, unspecified
CPT/HCPCS: 36415; 71045; 71275; 80053; 81001; 82728; 83605; 83615; 83880; 84145; 84484; 85025; 85379; 85610; 85730; 86140; 87040; 87086; 87426; 87633; 87635; 93005; 94640; 96361; 96365; 96375; 96376; 99218; 99284; J7030; J7040; Q9967; U0005; G0378; J2405; U0003